=== PATIENT | female | born 1950 | race African-American/Black ===

== ENCOUNTER 2017-10-13 08:17 | Emergency (ER) | payer MEDICAID ==
[~2017-10-13] VITALS: Ht 167.6 cm; Wt 65.0 kg
[2017-10-13 08:18] VITALS: BP 128/72
== END 2017-10-13 12:39 | disposition left against medical advice (07) ==
LOC: ER 08:40
DX: R05 Cough (principal); Z53.21 Procedure and treatment not carried out due to patient leaving prior to being seen by health care provider

== ENCOUNTER 2018-07-05 17:28 | Inpatient (IN) | payer MEDICAID ==
[~2018-07-05] VITALS: Ht 157.5 cm; Wt 54.4 kg
[~2018-07-05 17:28] MED LIST: BENZ100C86 PO; COR6 PO; FERR-71 MT; FURO20TA4 MT; LEVO750T46 MT; METH10TA2 PO
[2018-07-05] MEDS ORDERED: FAMOTIDINE 20MG/2ML VIAL IV ONE (19:15)
[2018-07-05 19:19] LABS: BASOPHILS % 0.9 % (0.0-2.0); HEMATOCRIT. 35.4 % (36.0-48.0); HEMOGLOBIN. 11.7 g/dL (12.0-16.0); LYMPHOCYTES % 7.5 % (20.0-50.0); MEAN CORPUSCULAR HEMOGLOBIN 29.6 pg (28.0-32.0); MEAN CORPUSCULAR VOLUME 89.6 fL (81.0-99.0); MEAN PLATELET VOLUME 8.2 fl (7.4-10.4); MONOCYTES % 9.8 % (2.0-8.0); NEUTROPHILS % 81.8 % (40.0-76.0); PLATELET 638 x1000/uL (130-400); RED BLOOD CELL COUNT 3.96 mill/uL (4.2-5.4); RED CELL DISTRIBUTION WIDTH 16.8 % (11.6-14.6)
[2018-07-05 19:21] LABS: CHLORIDE 100 mEq/L (98-107); PROTHROMBIN TIME 10.2 sec (9.1-11.1)
[2018-07-05 20:01] LABS: CLARITY URINE CLEAR (CLEAR); COLOR URINE DARK YELLOW (YELLOW); KETONES URINE NEGATIVE (NEGATIVE); LEUKOCYTE ESTERASE URINE 1+ (NEGATIVE); NITRITE URINE NEGATIVE (NEGATIVE); OCCULT BLOOD URINE NEGATIVE (NEGATIVE); PH URINE 6.5 (4.5-8.0); PROTEIN URINE NEGATIVE (NEGATIVE)
[2018-07-05] MEDS ORDERED: IOHEXOL-300 100 ML BOTTLE ONE (20:24)
[2018-07-05] MEDS ORDERED: LORAZEPAM 0.5MG TABLET PO PRN (22:15)
[2018-07-05] MEDS ORDERED: IPRATROPIUM/ALBUTEROL 0.5-3(2.5)MG/3ML NEB INH PRN (22:15)
[2018-07-05] MEDS ORDERED: CLONIDINE 0.1MG TABLET PO PRN (22:15)
[2018-07-05] MEDS ORDERED: ACETAMINOPHEN 325MG TABLET PO PRN (22:15)
[2018-07-05] MEDS ORDERED: ONDANSETRON HCL 4MG/2ML INJ IV PRN (22:15)
[2018-07-05] MEDS ORDERED: DOCUSATE SODIUM 100MG CAPSULE PO PRN (22:15)
[2018-07-05 22:58] LABS: CHLORIDE 102 mEq/L (98-107)
[2018-07-06] VITALS (7 sets, daily range): BP systolic 86–98; BP diastolic 38–59
[2018-07-06] MEDS ORDERED: CEFTRIAXONE 1 G PREMIX 50 ML IV SCH
[2018-07-06] MEDS: SODIUM CHLORIDE 0.9% 1,000 ML IV SCH (00:28)
[2018-07-06] MEDS: MAGNESIUM/ALUMINUM HYDROXIDE/SIMETHICONE 30ML UDC PO PRN (05:47)
[2018-07-06] MEDS: GUAIFENESIN 200MG/10ML SUGAR FREE UDC PO PRN (05:47)
[2018-07-06 06:48] LABS: BASOPHILS % 0.8 % (0.0-2.0); HEMATOCRIT. 28.2 % (36.0-48.0); HEMOGLOBIN. 9.3 g/dL (12.0-16.0); LYMPHOCYTES % 8.8 % (20.0-50.0); MEAN CORPUSCULAR HEMOGLOBIN 29.8 pg (28.0-32.0); MEAN CORPUSCULAR VOLUME 90.3 fL (81.0-99.0); MEAN PLATELET VOLUME 8.3 fl (7.4-10.4); MONOCYTES % 13.6 % (2.0-8.0); NEUTROPHILS % 76.8 % (40.0-76.0); PLATELET 525 x1000/uL (130-400); RED BLOOD CELL COUNT 3.12 mill/uL (4.2-5.4); RED CELL DISTRIBUTION WIDTH 17.2 % (11.6-14.6)
[2018-07-06 07:14] LABS: LDL CHOLESTEROL 62 mg/dL (5-100)
[2018-07-06 07:17] LABS: CREATINE KINASE 20 IU/L (26-192)
[2018-07-06 07:18] LABS: HDL CHOLESTEROL 41 mg/dL (40-59)
[2018-07-06 07:21] LABS: CREATINE KINASE MB FRACTION 1.2 ng/mL (0.5-3.6)
[2018-07-06] MEDS: ENOXAPARIN 40MG/0.4ML SYR SUBCUT SCH (08:25)
[2018-07-06] MEDS: HYDROCODONE/ACETAMINOPHEN 5/325MG TABLET PO PRN ×2 (10:14→20:33)
[2018-07-06] MEDS: METHADONE HCL 10MG TABLET PO SCH (11:31)
[2018-07-06] MEDS: FUROSEMIDE 20MG TABLET PO SCH (13:30)
[2018-07-06] MEDS ORDERED: BENZONATATE 100MG CAPSULE PO PRN (13:30)
[2018-07-06] MEDS ORDERED: CEFTRIAXONE 2 G PREMIX 50 ML IV SCH ×2 (15:00)
[2018-07-06 16:31] LABS: CREATINE KINASE 22 IU/L (26-192)
[2018-07-06 16:32] LABS: CREATINE KINASE MB FRACTION 1.2 ng/mL (0.5-3.6)
[2018-07-06] MEDS: CEFTRIAXONE 2 G in DEXTROSE 5% WATER 50 ML IV SCH (18:10)
[2018-07-06] MEDS ORDERED: CARVEDILOL 6.25 MG TABLET PO SCH (21:00)
[2018-07-07] VITALS: BP 96/40
[2018-07-07 04:00] VITALS: BP 101/58
[2018-07-07] MEDS: HYDROCODONE/ACETAMINOPHEN 5/325MG TABLET PO PRN ×3 (05:51→22:20)
[2018-07-07 06:39] LABS: BASOPHILS % 0.6 % (0.0-2.0); HEMATOCRIT. 29.1 % (36.0-48.0); HEMOGLOBIN. 9.8 g/dL (12.0-16.0); MEAN CORPUSCULAR VOLUME 88.7 fL (81.0-99.0); MONOCYTES % 14.8 % (2.0-8.0); NEUTROPHILS % 76.6 % (40.0-76.0); PLATELET 500 x1000/uL (130-400); RED BLOOD CELL COUNT 3.28 mill/uL (4.2-5.4); RED CELL DISTRIBUTION WIDTH 17.2 % (11.6-14.6)
[2018-07-07 06:55] LABS: CHLORIDE 100 mEq/L (98-107)
[2018-07-07] MEDS: SODIUM CHLORIDE 0.9% 1,000 ML IV SCH ×2 (06:56→18:00)
[2018-07-07 07:00] LABS: PHOSPHORUS 3.1 mg/dL (2.5-4.9)
[2018-07-07 08:00] VITALS: BP 92/49
[2018-07-07] MEDS: METHADONE HCL 10MG TABLET PO SCH (09:17)
[2018-07-07] MEDS: MAGNESIUM/ALUMINUM HYDROXIDE/SIMETHICONE 30ML UDC PO PRN (09:17)
[2018-07-07] MEDS: FUROSEMIDE 20MG TABLET PO SCH (09:17)
[2018-07-07] MEDS: ENOXAPARIN 40MG/0.4ML SYR SUBCUT SCH (09:23)
[2018-07-07] MEDS ORDERED: BARIUM SULFATE 176 GM SUSP.RECON ONE (10:50)
[2018-07-07 16:00] VITALS: BP 100/56
[2018-07-07 20:00] VITALS: BP 106/64
[2018-07-07] MEDS: CEFTRIAXONE 2 G in DEXTROSE 5% WATER 50 ML IV SCH (20:00)
[2018-07-08] VITALS (10 sets, daily range): BP systolic 87–110; BP diastolic 54–62
[2018-07-08] MEDS: SODIUM CHLORIDE 0.9% 1,000 ML IV SCH (00:33)
[2018-07-08 04:17] LABS: HIV SCREEN 4G Non Reactive (Non Reactive)
[2018-07-08 06:13] LABS: HEMATOCRIT. 26.9 % (36.0-48.0); HEMOGLOBIN. 9.2 g/dL (12.0-16.0); MEAN CORPUSCULAR HEMOGLOBIN 30.1 pg (28.0-32.0); MEAN CORPUSCULAR VOLUME 88.5 fL (81.0-99.0); MEAN PLATELET VOLUME 8.2 fl (7.4-10.4); PLATELET 503 x1000/uL (130-400); RED BLOOD CELL COUNT 3.04 mill/uL (4.2-5.4); RED CELL DISTRIBUTION WIDTH 16.8 % (11.6-14.6)
[2018-07-08 06:26] LABS: CHLORIDE 102 mEq/L (98-107)
[2018-07-08 06:32] LABS: HEPATITIS B SURFACE ANTIGEN NEGATIVE
[2018-07-08 06:34] LABS: PHOSPHORUS 3.3 mg/dL (2.5-4.9)
[2018-07-08 07:00] LABS: HEPATITIS B CORE AB IGM NEGATIVE
[2018-07-08 07:01] LABS: HEPATITIS A AB IGM NEGATIVE (NEGATIVE)
[2018-07-08] MEDS: ENOXAPARIN 40MG/0.4ML SYR SUBCUT SCH (09:05)
[2018-07-08] MEDS: FUROSEMIDE 20MG TABLET PO SCH (09:05)
[2018-07-08] MEDS: METHADONE HCL 10MG TABLET PO SCH (09:08)
[2018-07-08] MEDS ORDERED: FUROSEMIDE 20MG/2ML VIAL IVP SCH (12:45)
[2018-07-08 13:46] LABS: BG BASE EXCESS 2.2 mmol/L (-2.0-2.0); BG CARBOXYHEMOGLOBIN 0.3 % (0.5-1.5); BG DEOXYHEMOGLOBIN 4.6 % (0.0-5.0); BG FRACTION INSPIRED OXYGEN 21; BG HCO3 ACT 27.1 mmol/L (22.0-26.0); BG METHEMOGLOBIN 0.1 % (0.0-1.5); BG OXYGEN SATURATION 95.4 % (92.0-98.5); BG PCO2 43.6 mmHg (35.0-45.0); BG PH 7.412 (7.350-7.450); BG PO2 81.8 mmHg (75.0-100.0); BG SAMPLE SITE RIGHT BRACHIAL; BG TOTAL HEMOGLOBIN 10.3 g/dL (12.0-18.0); BG VENT MODE ROOM AIR
[2018-07-08] MEDS: HYDROCODONE/ACETAMINOPHEN 5/325MG TABLET PO PRN ×2 (15:40→20:32)
[2018-07-08] MEDS: CEFTRIAXONE 2 G in DEXTROSE 5% WATER 50 ML IV SCH (17:00)
[2018-07-08] MEDS ORDERED: ALBUTEROL (0.083%) 2.5MG/3ML NEB HHN PRN (17:45)
[2018-07-08] MEDS ORDERED: METRONIDAZOLE 500 MG PREMIX 100 ML IV SCH (20:00)
[2018-07-08] MEDS: ALBUTEROL (0.083%) 2.5MG/3ML NEB HHN SCH (20:14)
[2018-07-08] MEDS: GUAIFENESIN 200MG/10ML SUGAR FREE UDC PO PRN (20:27)
[2018-07-09] VITALS (12 sets, daily range): BP systolic 86–111; BP diastolic 52–70
[2018-07-09] MEDS: ACETYLCYSTEINE 100MG/ML 10% VIAL 4ML INH SCH ×4 (00:17→08:29)
[2018-07-09] MEDS: ALBUTEROL (0.083%) 2.5MG/3ML NEB HHN SCH ×5 (00:17→20:37)
[2018-07-09 00:26] LABS: PLATELET ESTIMATE INCREASED
[2018-07-09] MEDS: IPRATROPIUM/ALBUTEROL 0.5-3(2.5)MG/3ML NEB INH SCH ×7 (04:05→17:49)
[2018-07-09] MEDS: HYDROCODONE/ACETAMINOPHEN 5/325MG TABLET PO PRN ×2 (04:34→18:52)
[2018-07-09] MEDS: METRONIDAZOLE 500 MG PREMIX 100 ML IV SCH ×3 (04:39→17:18)
[2018-07-09 05:27] LABS: INR 1.1; PARTIAL THROMBOPLASTIN TIME 33.1 sec (23.4-31.0); PROTHROMBIN TIME 11.1 sec (9.1-11.1)
[2018-07-09 06:31] LABS: CHLORIDE 101 mEq/L (98-107)
[2018-07-09 06:37] LABS: PHOSPHORUS 3.6 mg/dL (2.5-4.9)
[2018-07-09] MEDS: FUROSEMIDE 20MG TABLET PO SCH (09:09)
[2018-07-09] MEDS: ENOXAPARIN 40MG/0.4ML SYR SUBCUT SCH (09:09)
[2018-07-09] MEDS: METHADONE HCL 10MG TABLET PO SCH (09:12)
[2018-07-09 11:42] LABS: HEMATOCRIT. 27.7 % (36.0-48.0); MEAN CORPUSCULAR HEMOGLOBIN 29.4 pg (28.0-32.0); MEAN CORPUSCULAR VOLUME 90.1 fL (81.0-99.0); MEAN PLATELET VOLUME 8.5 fl (7.4-10.4); PLATELET 464 x1000/uL (130-400); RED BLOOD CELL COUNT 3.08 mill/uL (4.2-5.4); RED CELL DISTRIBUTION WIDTH 17.2 % (11.6-14.6)
[2018-07-09 12:46] LABS: PLATELET ESTIMATE INCREASED
[2018-07-09] MEDS ORDERED: BISACODYL 10MG SUPP PR NR (13:15)
[2018-07-09] MEDS ORDERED: FUROSEMIDE 40MG/4ML VIAL IVP NR (14:00)
[2018-07-09] MEDS: DIPHENHYDRAMINE 50MG CAPSULE PO PRN (15:01)
[2018-07-09] MEDS: CEFTRIAXONE 2 G in DEXTROSE 5% WATER 50 ML IV SCH (16:36)
[2018-07-10] VITALS (11 sets, daily range): BP systolic 91–123; BP diastolic 55–66
[2018-07-10] MEDS: IPRATROPIUM/ALBUTEROL 0.5-3(2.5)MG/3ML NEB INH SCH ×2 (00:45→16:00)
[2018-07-10] MEDS: METRONIDAZOLE 500 MG PREMIX 100 ML IV SCH ×3 (01:56→18:00)
[2018-07-10] MEDS: HYDROCODONE/ACETAMINOPHEN 5/325MG TABLET PO PRN ×2 (03:02→20:02)
[2018-07-10] MEDS: GUAIFENESIN 200MG/10ML SUGAR FREE UDC PO PRN (03:02)
[2018-07-10] MEDS: ALBUTEROL (0.083%) 2.5MG/3ML NEB HHN SCH ×2 (04:05→21:30)
[2018-07-10 06:30] LABS: HEMOGLOBIN. 8.8 g/dL (12.0-16.0); MEAN CORPUSCULAR HEMOGLOBIN 29.9 pg (28.0-32.0); MEAN CORPUSCULAR VOLUME 88.3 fL (81.0-99.0); MEAN PLATELET VOLUME 8.4 fl (7.4-10.4); PLATELET 481 x1000/uL (130-400); RED BLOOD CELL COUNT 2.95 mill/uL (4.2-5.4); RED CELL DISTRIBUTION WIDTH 17.1 % (11.6-14.6)
[2018-07-10 06:46] LABS: CHLORIDE 100 mEq/L (98-107)
[2018-07-10 06:53] LABS: PHOSPHORUS 3.7 mg/dL (2.5-4.9)
[2018-07-10 07:00] LABS: TOTAL IRON BINDING CAPACITY 206 ug/dL (250-450)
[2018-07-10 07:04] LABS: FOLIC ACID (FOLATE) SERUM 16.5 ng/mL (>5.38)
[2018-07-10 07:08] LABS: INR 1.1; PARTIAL THROMBOPLASTIN TIME 32.3 sec (23.4-31.0); PROTHROMBIN TIME 11.4 sec (9.1-11.1)
[2018-07-10 10:07] LABS: PLATELET ESTIMATE INCREASED
[2018-07-10] MEDS: FUROSEMIDE 20MG TABLET PO SCH (11:50)
[2018-07-10] MEDS: ENOXAPARIN 40MG/0.4ML SYR SUBCUT SCH (11:51)
[2018-07-10] MEDS: METHADONE HCL 10MG TABLET PO SCH (11:51)
[2018-07-10] MEDS: CEFTRIAXONE 2 G in DEXTROSE 5% WATER 50 ML IV SCH (16:31)
[2018-07-10] MEDS: DIPHENHYDRAMINE 50MG CAPSULE PO PRN (16:31)
[2018-07-10] MEDS: PREDNISONE 20MG TABLET PO SCH (16:33)
[2018-07-10] MEDS: BUDESONIDE 0.5MG/2ML NEB HHN SCH (21:29)
[2018-07-11] VITALS (11 sets, daily range): BP systolic 92–136; BP diastolic 37–81
[2018-07-11] MEDS: ACETYLCYSTEINE 100MG/ML 10% VIAL 4ML INH SCH (01:07)
[2018-07-11] MEDS: ALBUTEROL (0.083%) 2.5MG/3ML NEB HHN SCH ×3 (01:08→11:49)
[2018-07-11] MEDS: METRONIDAZOLE 500 MG PREMIX 100 ML IV SCH ×3 (01:22→17:56)
[2018-07-11] MEDS: DIPHENHYDRAMINE 50MG CAPSULE PO PRN ×2 (01:22→23:41)
[2018-07-11] MEDS: PREDNISONE 20MG TABLET PO SCH (08:55)
[2018-07-11] MEDS: FUROSEMIDE 20MG TABLET PO SCH (08:55)
[2018-07-11] MEDS: METHADONE HCL 10MG TABLET PO SCH (08:56)
[2018-07-11] MEDS: ENOXAPARIN 40MG/0.4ML SYR SUBCUT SCH (08:56)
[2018-07-11] MEDS: CEFTRIAXONE 2 G in DEXTROSE 5% WATER 50 ML IV SCH (16:27)
[2018-07-11] MEDS: BUDESONIDE 0.5MG/2ML NEB HHN SCH (19:55)
[2018-07-11] MEDS: IPRATROPIUM/ALBUTEROL 0.5-3(2.5)MG/3ML NEB INH SCH (19:55)
[2018-07-12] VITALS (9 sets, daily range): BP systolic 101–138; BP diastolic 58–72
[2018-07-12] MEDS: ALBUTEROL (0.083%) 2.5MG/3ML NEB HHN SCH ×2 (00:04→04:18)
[2018-07-12] MEDS: ACETYLCYSTEINE 100MG/ML 10% VIAL 4ML INH SCH ×2 (00:05→08:20)
[2018-07-12] MEDS: METRONIDAZOLE 500 MG PREMIX 100 ML IV SCH ×2 (02:12→09:10)
[2018-07-12] MEDS: IPRATROPIUM/ALBUTEROL 0.5-3(2.5)MG/3ML NEB INH SCH (07:48)
[2018-07-12] MEDS: BUDESONIDE 0.5MG/2ML NEB HHN SCH (07:49)
[2018-07-12] MEDS: FUROSEMIDE 20MG TABLET PO SCH (08:08)
[2018-07-12] MEDS: ENOXAPARIN 40MG/0.4ML SYR SUBCUT SCH (08:08)
[2018-07-12] MEDS: PREDNISONE 20MG TABLET PO SCH (08:08)
[2018-07-12] MEDS ORDERED: METHADONE HCL 10MG TABLET PO SCH (09:00)
== END 2018-07-12 16:27 | disposition home health service (06) | DRG 720 ==
LOC: ER 21:03 → 7WST 21:27 → EDBEDREQTM 21:31 → EDBEDREQ 21:31 → ENRESERV 22:05 → 5EST 07-08 14:21
PROVIDERS: ADMIT Internal Medicine; ATTEND Internal Medicine
DX: A40.3 Sepsis due to Streptococcus pneumoniae (principal); J96.00 Acute respiratory failure, unspecified whether with hypoxia or hypercapnia; I50.43 Acute on chronic combined systolic (congestive) and diastolic (congestive) heart failure; E46 Unspecified protein-calorie malnutrition; J13 Pneumonia due to Streptococcus pneumoniae; I27.20 Pulmonary hypertension, unspecified; I11.0 Hypertensive heart disease with heart failure; I07.1 Rheumatic tricuspid insufficiency; K56.7 Ileus, unspecified; J44.0 Chronic obstructive pulmonary disease with (acute) lower respiratory infection; F14.90 Cocaine use, unspecified, uncomplicated; D64.9 Anemia, unspecified; K83.8 Other specified diseases of biliary tract; C95.91 Leukemia, unspecified, in remission; B19.20 Unspecified viral hepatitis C without hepatic coma; F17.200 Nicotine dependence, unspecified, uncomplicated; J44.1 Chronic obstructive pulmonary disease with (acute) exacerbation; Z87.11 Personal history of peptic ulcer disease; Z90.3 Acquired absence of stomach [part of]; Z91.19 Patient's noncompliance with other medical treatment and regimen; Z88.9 Allergy status to unspecified drugs, medicaments and biological substances; Z68.21 Body mass index [BMI] 21.0-21.9, adult; R07.89 Other chest pain; T40.5X1A Poisoning by cocaine, accidental (unintentional), initial encounter; J68.0 Bronchitis and pneumonitis due to chemicals, gases, fumes and vapors
CPT/HCPCS: 36415; 36600; 71045; 71250; 74177; 74181; 74250; 80048; 80053; 80061; 80076; 81003; 82375; 82550; 82553; 82607; 82728; 82746; 82805; 83540; 83550; 83605; 83690; 83735; 83880; 84100; 84145; 84443; 84484; 85025; 85610; 85730; 86301; 86705; 86709; 86803; 87040; 87340; 87389; 93005; 93970; 94640; 96374; 99285; J0696; J1650; J1940; J3490; J7030; J7050; J7060; J7512; J7608; J7611; J7620; J7626; Q0163; Q9967

== ENCOUNTER 2018-07-12 22:37 | Inpatient (IN) | payer MEDICAID ==
[~2018-07-12] VITALS: Ht 157.5 cm; Wt 46.9 kg
[2018-07-12] MEDS ORDERED: SODIUM CHLORIDE 0.9% 1,000 ML IV ONE (23:03)
[2018-07-12] MEDS ORDERED: KETOROLAC 30MG/ML VIAL IV STA (23:03)
[2018-07-12 23:47] LABS: CHLORIDE 97 mEq/L (98-107)
[2018-07-12 23:49] LABS: HEMOGLOBIN. 10.8 g/dL (12.0-16.0); MEAN CORPUSCULAR HEMOGLOBIN 29.1 pg (28.0-32.0); MEAN PLATELET VOLUME 8.3 fl (7.4-10.4); PLATELET 804 x1000/uL (130-400); RED BLOOD CELL COUNT 3.71 mill/uL (4.2-5.4); RED CELL DISTRIBUTION WIDTH 17.4 % (11.6-14.6)
[2018-07-12 23:51] LABS: ETHANOL BLOOD < 10 mg/dL; INR 1.2; PARTIAL THROMBOPLASTIN TIME 28.2 sec (23.4-31.0); PROTHROMBIN TIME 11.9 sec (9.1-11.1)
[2018-07-13 00:03] LABS: CLARITY URINE CLEAR (CLEAR); COLOR URINE YELLOW (YELLOW); KETONES URINE NEGATIVE (NEGATIVE); LEUKOCYTE ESTERASE URINE NEGATIVE (NEGATIVE); NITRITE URINE NEGATIVE (NEGATIVE); OCCULT BLOOD URINE NEGATIVE (NEGATIVE); PH URINE 8.5 (4.5-8.0); PROTEIN URINE 1+ (NEGATIVE); SPECIFIC GRAVITY URINE 1.022 (1.005-1.030)
[2018-07-13] MEDS ORDERED: CLINDAMYCIN 600 MG in SODIUM CHLORIDE 0.9% 50 ML IV NR (00:15)
[2018-07-13] MEDS ORDERED: VANCOMYCIN 1 G PREMIX 200 ML IV SCH (00:15)
[2018-07-13] MEDS ORDERED: ASPIRIN 325MG TABLET PO NR (00:15)
[2018-07-13] MEDS ORDERED: CEFEPIME HCL 2000MG/VIAL INJ IV ONE (00:15)
[2018-07-13] MEDS ORDERED: SODIUM CHLORIDE 0.9% 1,000 ML IV ONE (00:30)
[2018-07-13] MEDS ORDERED: CEFEPIME 2GM PREMIX 100 ML IV NR (00:30)
[2018-07-13] MEDS ORDERED: CEFEPIME 2,000 MG in DEXT 5% WATER 100 ML IV NR (00:30)
[2018-07-13 00:31] LABS: *AMPHETAMINES SCREEN URINE NEGATIVE (NEGATIVE); *BARBITURATES SCREEN URINE NEGATIVE (NEGATIVE); *BENZODIAZEPINES SCREEN URINE NEGATIVE (NEGATIVE); *COCAINE SCREEN URINE PRESUMTIVE POSITIVE (NEGATIVE); CANNABINOID URINE SCREEN NEGATIVE (NEGATIVE); PHENCYCLIDINE URINE SCREEN NEGATIVE (NEGATIVE)
[2018-07-13 00:32] LABS: OPIATES URINE SCREEN PRESUMTIVE POSITIVE (NEGATIVE)
[2018-07-13 00:36] LABS: METHADONE URINE SCREEN PRESUMTIVE POSITIVE (NEGATIVE)
[2018-07-13 02:49] LABS: PLATELET ESTIMATE INCREASED
[2018-07-13] MEDS ORDERED: KETOROLAC 15MG/ML VIAL IV ONE (03:15)
[2018-07-13 06:00] VITALS: BP 107/72
[2018-07-13 08:00] VITALS: BP 104/68
[2018-07-13] MEDS ORDERED: IPRATROPIUM/ALBUTEROL 0.5-3(2.5)MG/3ML NEB HHN PRN (08:15)
[2018-07-13] MEDS ORDERED: BUDESONIDE 0.5MG/2ML NEB HHN SCH (09:00)
[2018-07-13 09:45] VITALS: BP 104/68
[2018-07-13] MEDS ORDERED: BENZONATATE 100MG CAPSULE PO PRN (09:45)
[2018-07-13] MEDS: METHADONE HCL 10MG TABLET PO SCH ×2 (10:00→12:40)
[2018-07-13] MEDS: LEVOFLOXACIN 750MG PREMIX 150 ML IV SCH (11:02)
[2018-07-13 11:41] VITALS: BP 96/66
[2018-07-13] MEDS: IPRATROPIUM/ALBUTEROL 0.5-3(2.5)MG/3ML NEB HHN SCH ×3 (12:27→20:12)
[2018-07-13] MEDS ORDERED: LACTULOSE 20G/30ML UDC PO PRN (13:45)
[2018-07-13] MEDS: MORPHINE SULFATE 4 MG/ML CPJ (NOT FOR IM USE) IV PRN ×3 (13:55→21:30)
[2018-07-13] MEDS: METRONIDAZOLE 500 MG PREMIX 100 ML IV SCH ×2 (15:00→20:45)
[2018-07-13 16:00] VITALS: BP 95/63
[2018-07-13] MEDS: DOCUSATE SODIUM 250MG CAPSULE PO SCH (17:30)
[2018-07-13 20:00] VITALS: BP 105/71
[2018-07-13] MEDS: BUDESONIDE 0.5MG/2ML NEB HHN SCH (20:11)
[2018-07-13] MEDS: PANTOPRAZOLE SODIUM 40 MG/VIAL IV SCH (20:45)
[2018-07-14] VITALS (11 sets, daily range): BP systolic 90–111; BP diastolic 56–74
[2018-07-14] MEDS: MORPHINE SULFATE 4 MG/ML CPJ (NOT FOR IM USE) IV PRN ×2 (01:31→05:54)
[2018-07-14] MEDS: IPRATROPIUM/ALBUTEROL 0.5-3(2.5)MG/3ML NEB HHN SCH ×5 (01:35→20:12)
[2018-07-14 05:43] LABS: CHLORIDE 102 mEq/L (98-107); INR 1.2; PARTIAL THROMBOPLASTIN TIME 30.6 sec (23.4-31.0); PROTHROMBIN TIME 11.8 sec (9.1-11.1)
[2018-07-14 05:45] LABS: BASOPHILS % 0.8 % (0.0-2.0); HEMATOCRIT. 27.3 % (36.0-48.0); HEMOGLOBIN. 9.1 g/dL (12.0-16.0); LYMPHOCYTES % 11.2 % (20.0-50.0); MEAN CORPUSCULAR VOLUME 87.3 fL (81.0-99.0); MEAN PLATELET VOLUME 7.8 fl (7.4-10.4); PLATELET 506 x1000/uL (130-400); RED BLOOD CELL COUNT 3.12 mill/uL (4.2-5.4); RED CELL DISTRIBUTION WIDTH 16.9 % (11.6-14.6)
[2018-07-14] MEDS: METRONIDAZOLE 500 MG PREMIX 100 ML IV SCH ×3 (05:53→21:04)
[2018-07-14] MEDS: BUDESONIDE 0.5MG/2ML NEB HHN SCH ×2 (08:09→20:12)
[2018-07-14] MEDS: LEVOFLOXACIN 750MG PREMIX 150 ML IV SCH (08:41)
[2018-07-14] MEDS: PANTOPRAZOLE SODIUM 40 MG/VIAL IV SCH ×2 (08:41→21:03)
[2018-07-14] MEDS: DOCUSATE SODIUM 250MG CAPSULE PO SCH ×2 (09:00→17:34)
[2018-07-14] MEDS ORDERED: VECURONIUM BROMIDE 10 MG/VIAL IV ONE (11:25)
[2018-07-14] MEDS ORDERED: SUCCINYLCHOLINE CHLORIDE 200MG/10ML IV ONE (11:25)
[2018-07-14] MEDS ORDERED: FENTANYL CITRATE/PF 50MCG/ML 2ML VIAL ONE (11:25)
[2018-07-14] MEDS ORDERED: ETOMIDATE 2MG/ML 10ML VIAL IV ONE (11:25)
[2018-07-14] MEDS ORDERED: PROPOFOL 200MG/20ML VIAL IV ONE (11:25)
[2018-07-14] MEDS ORDERED: IOHEXOL-300 100 ML BOTTLE ONE (12:04)
[2018-07-14] MEDS ORDERED: SIMETHICONE 40 MG/0.6 ML 30ML ONE (12:05)
[2018-07-14] MEDS ORDERED: NIFEDIPINE 10MG CAPSULE ONE (13:03)
[2018-07-14] MEDS ORDERED: GLYCOPYRROLATE 0.2 MG/ML 2ML VIAL ONE (13:03)
[2018-07-14] MEDS ORDERED: NEOSTIGMINE METHYLSULFATE 1MG/ML 10 ML VIAL ONE (13:04)
[2018-07-14] MEDS ORDERED: HYDROMORPHONE HCL/PF 2MG/ML CPJ ONE (13:26)
[2018-07-14] MEDS ORDERED: ONDANSETRON HCL 4MG/2ML INJ IV PRN ×2 (13:30)
[2018-07-14] MEDS ORDERED: HYDROMORPHONE HCL/PF 2MG/ML CPJ IV PRN (13:30)
[2018-07-14] MEDS ORDERED: MEPERIDINE HCL/PF 25MG/ML CPJ IV PRN ×2 (13:30)
[2018-07-14] MEDS ORDERED: LABETALOL 5MG/ML SYR 20 MG/4 ML SYRINGE IV PRN ×2 (13:30)
[2018-07-14] MEDS: HYDROMORPHONE HCL/PF 2MG/ML CPJ IV PRN ×2 (13:52→14:15)
[2018-07-14] MEDS ORDERED: NA PHOS,M-B/NA PHOS,DI-BA ENEMA 118ML PR NR (14:00)
[2018-07-14] MEDS: METHADONE HCL 10MG TABLET PO SCH (15:02)
[2018-07-14 18:03] LABS: CLARITY URINE CLEAR (CLEAR); COLOR URINE YELLOW (YELLOW); KETONES URINE NEGATIVE (NEGATIVE); LEUKOCYTE ESTERASE URINE NEGATIVE (NEGATIVE); NITRITE URINE NEGATIVE (NEGATIVE); OCCULT BLOOD URINE NEGATIVE (NEGATIVE); PH URINE 7.5 (4.5-8.0); PROTEIN URINE NEGATIVE (NEGATIVE); SPECIFIC GRAVITY URINE 1.012 (1.005-1.030); UROBILINOGEN URINE 0.2 E.U./dL (0.2-1.0)
[2018-07-15] VITALS (8 sets, daily range): BP systolic 83–140; BP diastolic 50–88
[2018-07-15] MEDS: IPRATROPIUM/ALBUTEROL 0.5-3(2.5)MG/3ML NEB HHN SCH ×6 (00:52→20:00)
[2018-07-15] MEDS: MORPHINE SULFATE 4 MG/ML CPJ (NOT FOR IM USE) IV PRN ×5 (02:42→22:41)
[2018-07-15] MEDS: METRONIDAZOLE 500 MG PREMIX 100 ML IV SCH ×3 (06:21→22:41)
[2018-07-15] MEDS: METHADONE HCL 10MG TABLET PO SCH (07:32)
[2018-07-15] MEDS: BUDESONIDE 0.5MG/2ML NEB HHN SCH ×2 (07:54→20:00)
[2018-07-15] MEDS: DOCUSATE SODIUM 250MG CAPSULE PO SCH ×2 (09:00→17:00)
[2018-07-15] MEDS ORDERED: KETOROLAC 30MG/ML VIAL IV NR (15:15)
[2018-07-15 15:46] LABS: HEMATOCRIT. 29.2 % (36.0-48.0); HEMOGLOBIN. 9.8 g/dL (12.0-16.0); MEAN CORPUSCULAR HEMOGLOBIN 29.2 pg (28.0-32.0); MEAN CORPUSCULAR VOLUME 87.3 fL (81.0-99.0); MEAN PLATELET VOLUME 7.9 fl (7.4-10.4); PLATELET 597 x1000/uL (130-400); RED BLOOD CELL COUNT 3.35 mill/uL (4.2-5.4); RED CELL DISTRIBUTION WIDTH 17.1 % (11.6-14.6)
[2018-07-15 15:51] LABS: CHLORIDE 101 mEq/L (98-107)
[2018-07-15 21:04] LABS: ATYPICAL LYMPHOCYTES 1; PLATELET ESTIMATE INCREASED
[2018-07-16] VITALS: BP 100/58
[2018-07-16] MEDS: IPRATROPIUM/ALBUTEROL 0.5-3(2.5)MG/3ML NEB HHN SCH ×5 (00:30→20:23)
[2018-07-16] MEDS: METRONIDAZOLE 500 MG PREMIX 100 ML IV SCH ×3 (05:53→22:01)
[2018-07-16] MEDS: MORPHINE SULFATE 4 MG/ML CPJ (NOT FOR IM USE) IV PRN ×3 (05:53→17:22)
[2018-07-16] MEDS: METHADONE HCL 10MG TABLET PO SCH (07:54)
[2018-07-16] MEDS: DOCUSATE SODIUM 250MG CAPSULE PO SCH ×2 (07:54→17:17)
[2018-07-16 08:00] VITALS: BP 118/73
[2018-07-16] MEDS: LEVOFLOXACIN 750MG PREMIX 150 ML IV SCH (10:21)
[2018-07-16 12:00] VITALS: BP 108/70
[2018-07-16 16:00] VITALS: BP 116/71
[2018-07-16] MEDS: BUDESONIDE 0.5MG/2ML NEB HHN SCH ×2 (17:19→20:23)
[2018-07-16 17:27] LABS: BG BASE EXCESS 2.7 mmol/L (-2.0-2.0); BG CARBOXYHEMOGLOBIN 0.5 % (0.5-1.5); BG DEOXYHEMOGLOBIN 5.5 % (0.0-5.0); BG FRACTION INSPIRED OXYGEN 21; BG METHEMOGLOBIN 0.5 % (0.0-1.5); BG OXYGEN SATURATION 94.4 % (92.0-98.5); BG OXYHEMOGLOBIN 93.5 % (94.0-97.0); BG PCO2 35.7 mmHg (35.0-45.0); BG PH 7.481 (7.350-7.450); BG PO2 70.6 mmHg (75.0-100.0); BG SAMPLE SITE RIGHT BRACHIAL; BG TOTAL HEMOGLOBIN 11.3 g/dL (12.0-18.0); BG VENT MODE ROOM AIR
[2018-07-16 17:59] LABS: BASOPHILS % 0.2 % (0.0-2.0); HEMATOCRIT. 27.9 % (36.0-48.0); HEMOGLOBIN. 9.4 g/dL (12.0-16.0); LYMPHOCYTES % 4.1 % (20.0-50.0); MEAN CORPUSCULAR HEMOGLOBIN 29.1 pg (28.0-32.0); MEAN CORPUSCULAR VOLUME 86.5 fL (81.0-99.0); MEAN PLATELET VOLUME 7.9 fl (7.4-10.4); MONOCYTES % 9.9 % (2.0-8.0); NEUTROPHILS % 85.8 % (40.0-76.0); PLATELET 526 x1000/uL (130-400); RED BLOOD CELL COUNT 3.23 mill/uL (4.2-5.4); RED CELL DISTRIBUTION WIDTH 17.2 % (11.6-14.6)
[2018-07-16 18:07] LABS: CHLORIDE 100 mEq/L (98-107)
[2018-07-16 20:00] VITALS: BP 100/60
[2018-07-17] VITALS: BP 100/62
[2018-07-17 04:00] VITALS: BP 91/65
[2018-07-17] MEDS: METRONIDAZOLE 500 MG PREMIX 100 ML IV SCH ×3 (05:38→21:13)
[2018-07-17 08:00] VITALS: BP 109/59
[2018-07-17] MEDS: IPRATROPIUM/ALBUTEROL 0.5-3(2.5)MG/3ML NEB HHN SCH ×4 (08:00→20:00)
[2018-07-17] MEDS: METHADONE HCL 10MG TABLET PO SCH (08:09)
[2018-07-17] MEDS: LACTULOSE 20G/30ML UDC PO SCH (08:10)
[2018-07-17] MEDS: DOCUSATE SODIUM 250MG CAPSULE PO SCH ×2 (08:10→17:08)
[2018-07-17 12:00] VITALS: BP 113/45
[2018-07-17 16:00] VITALS: BP 106/55
[2018-07-17] MEDS: BUDESONIDE 0.5MG/2ML NEB HHN SCH (16:00)
[2018-07-17 20:00] VITALS: BP 99/69
[2018-07-17] MEDS: GUAIFENESIN 600MG ER TABLET PO SCH (21:12)
[2018-07-18] VITALS (7 sets, daily range): BP systolic 95–137; BP diastolic 48–73
[2018-07-18] MEDS: METRONIDAZOLE 500 MG PREMIX 100 ML IV SCH ×3 (05:49→21:18)
[2018-07-18 07:21] LABS: HEMATOCRIT. 25.2 % (36.0-48.0); HEMOGLOBIN. 8.7 g/dL (12.0-16.0); MEAN CORPUSCULAR HEMOGLOBIN 29.9 pg (28.0-32.0); MEAN CORPUSCULAR VOLUME 87.1 fL (81.0-99.0); MEAN PLATELET VOLUME 8.2 fl (7.4-10.4); PLATELET 431 x1000/uL (130-400); RED CELL DISTRIBUTION WIDTH 17.3 % (11.6-14.6)
[2018-07-18 07:50] LABS: CHLORIDE 104 mEq/L (98-107)
[2018-07-18] MEDS: IPRATROPIUM/ALBUTEROL 0.5-3(2.5)MG/3ML NEB HHN SCH ×3 (08:22→15:34)
[2018-07-18] MEDS: LACTULOSE 20G/30ML UDC PO SCH ×2 (09:00→09:04)
[2018-07-18] MEDS: METHADONE HCL 10MG TABLET PO SCH (09:05)
[2018-07-18] MEDS: DOCUSATE SODIUM 250MG CAPSULE PO SCH ×2 (09:06→17:00)
[2018-07-18] MEDS: GUAIFENESIN 600MG ER TABLET PO SCH ×2 (09:06→21:18)
[2018-07-18] MEDS: LEVOFLOXACIN 750MG PREMIX 150 ML IV SCH (09:07)
[2018-07-18] MEDS: ACETYLCYSTEINE 100MG/ML 10% VIAL 4ML INH SCH ×2 (09:50→14:00)
[2018-07-18] MEDS ORDERED: BISACODYL 10MG SUPP PR PRN (12:00)
[2018-07-18] MEDS ORDERED: NA PHOS,M-B/NA PHOS,DI-BA ENEMA 118ML PR PRN (12:00)
[2018-07-18 13:52] LABS: PLATELET ESTIMATE SLIGHTLY INCREASED
[2018-07-18] MEDS: BUDESONIDE 0.5MG/2ML NEB HHN SCH (15:33)
[2018-07-19] VITALS (7 sets, daily range): BP systolic 90–95; BP diastolic 42–54
[2018-07-19] MEDS: IPRATROPIUM/ALBUTEROL 0.5-3(2.5)MG/3ML NEB HHN SCH ×3 (01:15→08:55)
[2018-07-19] MEDS: BUDESONIDE 0.5MG/2ML NEB HHN SCH (01:16)
[2018-07-19] MEDS: METRONIDAZOLE 500 MG PREMIX 100 ML IV SCH ×2 (05:35→13:38)
[2018-07-19 06:13] LABS: BASOPHILS % 0.7 % (0.0-2.0); HEMATOCRIT. 25.3 % (36.0-48.0); HEMOGLOBIN. 8.6 g/dL (12.0-16.0); LYMPHOCYTES % 11.4 % (20.0-50.0); MEAN CORPUSCULAR HEMOGLOBIN 29.6 pg (28.0-32.0); MONOCYTES % 12.8 % (2.0-8.0); NEUTROPHILS % 75.1 % (40.0-76.0); PLATELET 392 x1000/uL (130-400); RED BLOOD CELL COUNT 2.91 mill/uL (4.2-5.4); RED CELL DISTRIBUTION WIDTH 17.5 % (11.6-14.6)
[2018-07-19 06:34] LABS: CHLORIDE 103 mEq/L (98-107)
[2018-07-19] MEDS: GUAIFENESIN 600MG ER TABLET PO SCH ×3 (08:43→20:57)
[2018-07-19] MEDS: LACTULOSE 20G/30ML UDC PO SCH ×2 (08:43→08:46)
[2018-07-19] MEDS: DOCUSATE SODIUM 250MG CAPSULE PO SCH ×3 (08:43→17:00)
[2018-07-19] MEDS: METHADONE HCL 10MG TABLET PO SCH (10:48)
[2018-07-20 00:05] VITALS: BP 101/63
[2018-07-20] MEDS: IPRATROPIUM/ALBUTEROL 0.5-3(2.5)MG/3ML NEB HHN SCH ×4 (00:17→14:17)
[2018-07-20] MEDS: ACETYLCYSTEINE 100MG/ML 10% VIAL 4ML INH SCH (00:18)
[2018-07-20 04:00] VITALS: BP 95/47
[2018-07-20 08:00] VITALS: BP 93/52
[2018-07-20] MEDS: GUAIFENESIN 600MG ER TABLET PO SCH (08:21)
[2018-07-20] MEDS: METHADONE HCL 10MG TABLET PO SCH (08:25)
[2018-07-20] MEDS: LEVOFLOXACIN 750MG PREMIX 150 ML IV SCH (08:26)
[2018-07-20] MEDS: LACTULOSE 20G/30ML UDC PO SCH (09:00)
[2018-07-20] MEDS: DOCUSATE SODIUM 250MG CAPSULE PO SCH ×2 (09:00→17:00)
[2018-07-20] MEDS: BUDESONIDE 0.5MG/2ML NEB HHN SCH (10:01)
[2018-07-20 12:00] VITALS: BP 88/44
[2018-07-20 14:01] VITALS: BP 90/53
[2018-07-20 16:00] VITALS: BP 90/41
== END 2018-07-20 18:18 | disposition home health service (06) | DRG 140 ==
LOC: ER 22:41 → 5EST 07-13 00:29 → EDBEDREQDT 07-13 00:34 → EDBEDREQTM 07-13 00:34 → EDBEDREQ 07-13 00:34 → EDBEDREQSVC 07-13 00:34 → ENRESERV 07-13 04:27 → 7WST 07-18 17:00
PROVIDERS: ADMIT Internal Medicine; ATTEND Internal Medicine
PROC: 5A09357 Assistance with Respiratory Ventilation, Less than 24 Consecutive Hours, Continuous Positive Airway Pressure (ICD-10-PCS; 2018-07-13)
PROC: 0FBC8ZX Excision of Ampulla of Vater, Via Natural or Artificial Opening Endoscopic, Diagnostic (ICD-10-PCS; 2018-07-14)
PROC: 0DJ08ZZ Inspection of Upper Intestinal Tract, Via Natural or Artificial Opening Endoscopic (ICD-10-PCS; principal; 2018-07-14 11:00)
DX: J44.0 Chronic obstructive pulmonary disease with (acute) lower respiratory infection (principal); J96.01 Acute respiratory failure with hypoxia; I50.43 Acute on chronic combined systolic (congestive) and diastolic (congestive) heart failure; J18.9 Pneumonia, unspecified organism; E87.2 Acidosis; E87.8 Other disorders of electrolyte and fluid balance, not elsewhere classified; I27.21 Secondary pulmonary arterial hypertension; E44.1 Mild protein-calorie malnutrition; I07.1 Rheumatic tricuspid insufficiency; I11.0 Hypertensive heart disease with heart failure; Z68.1 Body mass index [BMI] 19.9 or less, adult; B18.2 Chronic viral hepatitis C; D63.8 Anemia in other chronic diseases classified elsewhere; F17.210 Nicotine dependence, cigarettes, uncomplicated; K29.70 Gastritis, unspecified, without bleeding; C95.91 Leukemia, unspecified, in remission; J44.1 Chronic obstructive pulmonary disease with (acute) exacerbation; K44.9 Diaphragmatic hernia without obstruction or gangrene; K59.00 Constipation, unspecified; K83.8 Other specified diseases of biliary tract; F11.10 Opioid abuse, uncomplicated; F14.10 Cocaine abuse, uncomplicated; R16.2 Hepatomegaly with splenomegaly, not elsewhere classified; Z53.29 Procedure and treatment not carried out because of patient's decision for other reasons; Z87.11 Personal history of peptic ulcer disease; Z71.51 Drug abuse counseling and surveillance of drug abuser; Z90.3 Acquired absence of stomach [part of]; Z91.19 Patient's noncompliance with other medical treatment and regimen; Z88.8 Allergy status to other drugs, medicaments and biological substances; Z79.899 Other long term (current) drug therapy
CPT/HCPCS: 36415; 36600; 71045; 71250; 74018; 74176; 74330; 80048; 80053; 80305; 81003; 82375; 82805; 82962; 83036; 83605; 83690; 83880; 84484; 85025; 85610; 85730; 87040; 88305; 93005; 94640; 94660; 96361; 96374; 97162; 99291; C1726; C1769; C9113; G0482; J0330; J0692; J1170; J1885; J1956; J2270; J2704; J2710; J3010; J3370; J3490; J7030; J7050; J7060; J7608; J7620; J7626; Q9967

== ENCOUNTER 2018-10-24 17:03 | Inpatient (IN) | payer MEDICAID ==
[~2018-10-24] VITALS: Ht 157.5 cm; Wt 54.7 kg
[2018-10-24] MEDS ORDERED: SODIUM CHLORIDE 0.9% 1000ML BAG (SEPSIS BOLUS) IV ONE (19:00)
[2018-10-24 19:46] LABS: HEMATOCRIT. 37.4 % (36.0-48.0); HEMOGLOBIN. 12.2 g/dL (12.0-16.0); MEAN CORPUSCULAR HEMOGLOBIN 31.1 pg (28.0-32.0); MEAN CORPUSCULAR VOLUME 95.5 fL (81.0-99.0); MEAN PLATELET VOLUME 9.3 fl (7.4-10.4); PLATELET 350 x1000/uL (130-400); RED BLOOD CELL COUNT 3.92 mill/uL (4.2-5.4); RED CELL DISTRIBUTION WIDTH 20.7 % (11.6-14.6)
[2018-10-24 19:54] LABS: PROTHROMBIN TIME 10.4 sec (9.1-11.1)
[2018-10-24 20:00] LABS: CHLORIDE 108 mEq/L (98-107)
[2018-10-24 20:07] LABS: NUCLEATED RED BLOOD CELLS 1 /100 WBC; PLATELET ESTIMATE NORMAL
[2018-10-24] MEDS ORDERED: NITROGLYCERIN 0.4MG TABLET SL SL PRN (20:30)
[2018-10-24] MEDS ORDERED: ASPIRIN 81MG TABLET PO ONE (20:30)
[2018-10-24] MEDS ORDERED: METHADONE HCL 10MG TABLET PO SCH (20:30)
[2018-10-24] MEDS ORDERED: LEVOFLOXACIN 750MG PREMIX 150 ML IV ONE (20:30)
[2018-10-24] MEDS ORDERED: KETOROLAC 15MG/ML VIAL IV ONE (20:30)
[2018-10-24 20:52] LABS: CLARITY URINE CLEAR (CLEAR); COLOR URINE YELLOW (YELLOW); KETONES URINE NEGATIVE (NEGATIVE); LEUKOCYTE ESTERASE URINE 1+ (NEGATIVE); NITRITE URINE NEGATIVE (NEGATIVE); OCCULT BLOOD URINE NEGATIVE (NEGATIVE); PROTEIN URINE NEGATIVE (NEGATIVE); SPECIFIC GRAVITY URINE 1.016 (1.005-1.030)
[2018-10-24] MEDS ORDERED: DOCUSATE SODIUM 100MG CAPSULE PO PRN (22:00)
[2018-10-24] MEDS ORDERED: CLONIDINE 0.1MG TABLET PO PRN (22:00)
[2018-10-24] MEDS ORDERED: ACETAMINOPHEN 325MG TABLET PO PRN (22:00)
[2018-10-24] MEDS ORDERED: DIPHENHYDRAMINE 50MG/ML VIAL IV PRN (22:00)
[2018-10-24] MEDS ORDERED: IPRATROPIUM/ALBUTEROL 0.5-3(2.5)MG/3ML NEB INH PRN (22:00)
[2018-10-24] MEDS ORDERED: MAGNESIUM/ALUMINUM HYDROXIDE/SIMETHICONE 30ML UDC PO PRN (22:00)
[2018-10-25 06:25] LABS: HEMATOCRIT. 31.6 % (36.0-48.0); HEMOGLOBIN. 10.6 g/dL (12.0-16.0); MEAN CORPUSCULAR HEMOGLOBIN 31.7 pg (28.0-32.0); MEAN CORPUSCULAR VOLUME 94.5 fL (81.0-99.0); MEAN PLATELET VOLUME 9.2 fl (7.4-10.4); PLATELET 297 x1000/uL (130-400); RED BLOOD CELL COUNT 3.34 mill/uL (4.2-5.4); RED CELL DISTRIBUTION WIDTH 20.4 % (11.6-14.6)
[2018-10-25 06:34] LABS: CHLORIDE 113 mEq/L (98-107)
[2018-10-25 06:40] LABS: PHOSPHORUS 2.9 mg/dL (2.5-4.9)
[2018-10-25 09:13] LABS: PLATELET ESTIMATE NORMAL
[2018-10-25 09:50] VITALS: BP 122/59
[2018-10-25 10:00] VITALS: BP 122/59
[2018-10-25 12:00] VITALS: BP 123/52
[2018-10-25] MEDS: METHADONE HCL 10MG TABLET PO SCH (12:36)
[2018-10-25] MEDS: OMEPRAZOLE 20MG CAPSULE EXTENDED RELEASE PO SCH (12:36)
[2018-10-25] MEDS: GUAIFENESIN 200MG/10ML SUGAR FREE UDC PO PRN (12:38)
[2018-10-25 16:32] VITALS: BP 127/56
[2018-10-25 20:21] VITALS: BP 100/58
[2018-10-25] MEDS: GUAIFENESIN 600MG ER TABLET PO SCH (20:42)
[2018-10-26] VITALS (7 sets, daily range): BP systolic 105–121; BP diastolic 54–70
[2018-10-26 07:08] LABS: HEMATOCRIT. 33.7 % (36.0-48.0); HEMOGLOBIN. 11.2 g/dL (12.0-16.0); MEAN CORPUSCULAR HEMOGLOBIN 31.2 pg (28.0-32.0); MEAN CORPUSCULAR VOLUME 94.3 fL (81.0-99.0); MEAN PLATELET VOLUME 9.2 fl (7.4-10.4); PLATELET 290 x1000/uL (130-400); RED BLOOD CELL COUNT 3.58 mill/uL (4.2-5.4); RED CELL DISTRIBUTION WIDTH 20.6 % (11.6-14.6)
[2018-10-26 07:19] LABS: CHLORIDE 109 mEq/L (98-107)
[2018-10-26] MEDS: GUAIFENESIN 200MG/10ML SUGAR FREE UDC PO PRN (09:11)
[2018-10-26] MEDS: GUAIFENESIN 600MG ER TABLET PO SCH (09:11)
[2018-10-26] MEDS: METHADONE HCL 10MG TABLET PO SCH (09:11)
[2018-10-26] MEDS: OMEPRAZOLE 20MG CAPSULE EXTENDED RELEASE PO SCH (09:13)
[2018-10-26 12:22] LABS: ATYPICAL LYMPHOCYTES 1
[2018-10-26 12:24] LABS: PLATELET ESTIMATE NORMAL
[2018-10-26 12:31] LABS: *BARBITURATES SCREEN URINE NEGATIVE (NEGATIVE); *BENZODIAZEPINES SCREEN URINE NEGATIVE (NEGATIVE)
[2018-10-26 12:32] LABS: *AMPHETAMINES SCREEN URINE NEGATIVE (NEGATIVE); *COCAINE SCREEN URINE PRESUMTIVE POSITIVE (NEGATIVE); CANNABINOID URINE SCREEN NEGATIVE (NEGATIVE); METHADONE URINE SCREEN PRESUMTIVE POSITIVE (NEGATIVE); OPIATES URINE SCREEN NEGATIVE (NEGATIVE); PHENCYCLIDINE URINE SCREEN NEGATIVE (NEGATIVE)
== END 2018-10-26 17:40 | disposition home or self-care (01) | DRG 145 ==
LOC: ER 17:03 → EDBEDREQSVC 20:45 → EDBEDREQ 20:45 → 8WST 22:07 → EDBEDREQ 22:09 → ENRESERV 10-25 09:03
PROVIDERS: ADMIT Family Medicine Adult Medicine; ATTEND Family Medicine Adult Medicine
DX: R07.81 Pleurodynia (principal); I11.0 Hypertensive heart disease with heart failure; I50.9 Heart failure, unspecified; I07.1 Rheumatic tricuspid insufficiency; I27.20 Pulmonary hypertension, unspecified; J45.909 Unspecified asthma, uncomplicated; F14.10 Cocaine abuse, uncomplicated; F11.10 Opioid abuse, uncomplicated; G89.29 Other chronic pain; Z88.8 Allergy status to other drugs, medicaments and biological substances; Z79.899 Other long term (current) drug therapy; Z85.6 Personal history of leukemia; Z92.21 Personal history of antineoplastic chemotherapy
CPT/HCPCS: 36415; 71045; 80048; 80305; 83605; 83735; 83880; 84100; 84145; 84484; 86850; 86900; 93005; 99285; J1885; J1956

== ENCOUNTER 2018-12-15 15:49 | Inpatient (IN) | payer MEDICAID ==
[~2018-12-15] VITALS: Ht 162.6 cm; Wt 46.7 kg
[~2018-12-15 15:49] MED LIST changes: -BENZ100C86 PO; -COR6 PO
[2018-12-15] MEDS ORDERED: MORPHINE SULFATE 4 MG/ML CPJ (NOT FOR IM USE) IV ONE (16:30)
[2018-12-15] MEDS ORDERED: SODIUM CHLORIDE 0.9% 500 ML IV ONE (16:30)
[2018-12-15] MEDS ORDERED: ONDANSETRON HCL 4MG/2ML INJ IV ONE ×2 (16:30→20:00)
[2018-12-15] MEDS ORDERED: FAMOTIDINE 20MG/2ML VIAL IV ONE (16:30)
[2018-12-15] MEDS ORDERED: HALOPERIDOL 5MG TABLET PO ONE (17:15)
[2018-12-15 17:39] LABS: BASOPHILS % 1.1 % (0.0-2.0); EOSINOPHILS % 0.1 % (0.0-5.0); HEMATOCRIT. 34.1 % (36.0-48.0); HEMOGLOBIN. 11.1 g/dL (12.0-16.0); LYMPHOCYTES % 18.9 % (20.0-50.0); MEAN CORPUSCULAR HEMOGLOBIN 31.3 pg (28.0-32.0); MEAN CORPUSCULAR VOLUME 96.1 fL (81.0-99.0); MEAN PLATELET VOLUME 8.9 fl (7.4-10.4); NEUTROPHILS % 69.9 % (40.0-76.0); PLATELET 757 x1000/uL (130-400); RED BLOOD CELL COUNT 3.55 mill/uL (4.2-5.4); RED CELL DISTRIBUTION WIDTH 19.9 % (11.6-14.6)
[2018-12-15] MEDS ORDERED: LORAZEPAM 2MG/ML CPJ IV ONE (17:45)
[2018-12-15 17:46] LABS: CHLORIDE 107 mEq/L (98-107); PROTHROMBIN TIME 10.4 sec (9.1-11.1)
[2018-12-15 17:50] LABS: ETHANOL BLOOD < 10 mg/dL
[2018-12-15] MEDS ORDERED: ZIPRASIDONE MESYLATE 20MG/VIAL IM ONE (18:45)
[2018-12-15] MEDS ORDERED: DIPHENHYDRAMINE 50MG/ML VIAL IM ONE (18:45)
[2018-12-15] MEDS ORDERED: IOHEXOL-300 100 ML BOTTLE ONE (18:59)
[2018-12-15] MEDS ORDERED: AZITHROMYCIN 500 MG in DEXT 5% WATER 250 ML IV SCH (19:00)
[2018-12-15] MEDS ORDERED: CEFTRIAXONE 1 G PREMIX 50 ML IV ONE (19:00)
[2018-12-15] MEDS ORDERED: PIPERACILLIN/TAZ 3.375G PREMIX 50 ML IV ONE (20:45)
[2018-12-15] MEDS ORDERED: ACETAMINOPHEN 325MG TABLET PO PRN (21:15)
[2018-12-15] MEDS ORDERED: DOCUSATE SODIUM 100MG CAPSULE PO PRN (21:15)
[2018-12-15] MEDS ORDERED: HYDROCODONE/ACETAMINOPHEN 5/325MG TABLET PO PRN (21:15)
[2018-12-15] MEDS ORDERED: MAGNESIUM/ALUMINUM HYDROXIDE/SIMETHICONE 30ML UDC PO PRN (21:15)
[2018-12-15] MEDS ORDERED: GUAIFENESIN 200MG/10ML SUGAR FREE UDC PO PRN (21:15)
[2018-12-15] MEDS ORDERED: ONDANSETRON HCL 4MG/2ML INJ IV PRN (21:15)
[2018-12-15] MEDS ORDERED: DIPHENHYDRAMINE 50MG/ML VIAL IV PRN (21:15)
[2018-12-15] MEDS ORDERED: CLONIDINE 0.1MG TABLET PO PRN (21:15)
[2018-12-15] MEDS ORDERED: IPRATROPIUM/ALBUTEROL 0.5-3(2.5)MG/3ML NEB INH PRN (21:15)
[2018-12-15 22:47] LABS: CLARITY URINE CLEAR (CLEAR); COLOR URINE YELLOW (YELLOW); KETONES URINE NEGATIVE (NEGATIVE); LEUKOCYTE ESTERASE URINE 3+ (NEGATIVE); NITRITE URINE NEGATIVE (NEGATIVE); OCCULT BLOOD URINE TRACE (NEGATIVE); PROTEIN URINE NEGATIVE (NEGATIVE); SPECIFIC GRAVITY URINE 1.014 (1.005-1.030); UROBILINOGEN URINE 0.2 E.U./dL (0.2-1.0)
[2018-12-15 22:56] LABS: PHOSPHORUS 3.1 mg/dL (2.5-4.9)
[2018-12-15 23:11] LABS: *AMPHETAMINES SCREEN URINE NEGATIVE (NEGATIVE); *BARBITURATES SCREEN URINE NEGATIVE (NEGATIVE); *BENZODIAZEPINES SCREEN URINE NEGATIVE (NEGATIVE); *COCAINE SCREEN URINE PRESUMTIVE POSITIVE (NEGATIVE)
[2018-12-15 23:12] LABS: CANNABINOID URINE SCREEN NEGATIVE (NEGATIVE); OPIATES URINE SCREEN PRESUMTIVE POSITIVE (NEGATIVE); PHENCYCLIDINE URINE SCREEN NEGATIVE (NEGATIVE)
[2018-12-15 23:14] LABS: METHADONE URINE SCREEN PRESUMTIVE POSITIVE (NEGATIVE)
[2018-12-15 23:18] LABS: HEPATITIS B SURFACE ANTIGEN NEGATIVE
[2018-12-15 23:48] LABS: HEPATITIS A AB IGM NEGATIVE (NEGATIVE)
[2018-12-16] VITALS: BP 154/89
[2018-12-16 00:45] VITALS: BP 155/80
[2018-12-16] MEDS: LORAZEPAM 2MG/ML CPJ IV PRN ×2 (02:33→13:35)
[2018-12-16] MEDS: SODIUM CHLORIDE 0.9% 1,000 ML IV SCH ×2 (02:47→20:41)
[2018-12-16] MEDS ORDERED: DEXTROSE 50% WATER 50ML SYRINGE IV PRN (03:30)
[2018-12-16 04:00] VITALS: BP 144/79
[2018-12-16] MEDS: BLOOD SUGAR DIAGNOSTIC STRIP TEST SCH ×4 (05:41→21:00)
[2018-12-16] MEDS: INSULIN LISPRO 100 UNITS/ML SUBCUT SCH ×4 (05:42→21:00)
[2018-12-16] MEDS: ENOXAPARIN 40MG/0.4ML SYR SUBCUT SCH (08:18)
[2018-12-16 09:38] LABS: HEMATOCRIT. 32.3 % (36.0-48.0); HEMOGLOBIN. 10.8 g/dL (12.0-16.0); MEAN CORPUSCULAR HEMOGLOBIN 31.4 pg (28.0-32.0); MEAN CORPUSCULAR VOLUME 94.1 fL (81.0-99.0); MEAN PLATELET VOLUME 7.5 fl (7.4-10.4); PLATELET 530 x1000/uL (130-400); RED BLOOD CELL COUNT 3.44 mill/uL (4.2-5.4)
[2018-12-16 09:40] LABS: CHLORIDE 117 mEq/L (98-107)
[2018-12-16 09:47] LABS: LDL CHOLESTEROL 71 mg/dL (5-100)
[2018-12-16 09:48] LABS: CREATINE KINASE 195 IU/L (26-192); HDL CHOLESTEROL 81 mg/dL (40-59)
[2018-12-16 12:00] VITALS: BP 148/78
[2018-12-16] MEDS: CEFTRIAXONE 1,000 MG in DEXTROSE 5% WATER 50 ML IV SCH (13:58)
[2018-12-16 16:00] VITALS: BP 145/81
[2018-12-16] MEDS ORDERED: HALOPERIDOL 5MG TABLET PO PRN (18:10)
[2018-12-16 18:13] LABS: PLATELET ESTIMATE INCREASED
[2018-12-16] MEDS: FERROUS SULFATE 325MG TABLET PO SCH (18:43)
[2018-12-16] MEDS: FUROSEMIDE 20MG TABLET PO SCH (18:43)
[2018-12-16] MEDS: AZITHROMYCIN 500 MG in DEXT 5% WATER 250 ML IV SCH (18:44)
[2018-12-16 20:00] VITALS: BP 163/68
[2018-12-16] MEDS ORDERED: HALOPERIDOL LACTATE 5MG/ML VIAL IM PRN (20:45)
[2018-12-17] VITALS: BP 168/94
[2018-12-17] MEDS: IPRATROPIUM/ALBUTEROL 0.5-3(2.5)MG/3ML NEB HHN SCH (02:13)
[2018-12-17 04:00] VITALS: BP 164/94
[2018-12-17 06:42] LABS: CHLORIDE 105 mEq/L (98-107)
[2018-12-17 06:46] LABS: HEMOGLOBIN. 11.3 g/dL (12.0-16.0); MEAN CORPUSCULAR HEMOGLOBIN 31.4 pg (28.0-32.0); MEAN CORPUSCULAR VOLUME 94.6 fL (81.0-99.0); MEAN PLATELET VOLUME 7.7 fl (7.4-10.4); PLATELET 388 x1000/uL (130-400); RED CELL DISTRIBUTION WIDTH 18.9 % (11.6-14.6)
[2018-12-17] MEDS: BLOOD SUGAR DIAGNOSTIC STRIP TEST SCH ×4 (07:16→21:00)
[2018-12-17] MEDS: INSULIN LISPRO 100 UNITS/ML SUBCUT SCH ×4 (07:16→21:00)
[2018-12-17 08:00] VITALS: BP 145/85
[2018-12-17] MEDS: FERROUS SULFATE 325MG TABLET PO SCH ×2 (08:47→17:20)
[2018-12-17] MEDS: ENOXAPARIN 40MG/0.4ML SYR SUBCUT SCH (08:47)
[2018-12-17] MEDS: FUROSEMIDE 20MG TABLET PO SCH (08:47)
[2018-12-17 10:30] LABS: BG BASE EXCESS 3.7 mmol/L (-2.0-2.0); BG CARBOXYHEMOGLOBIN 0.6 % (0.5-1.5); BG DEOXYHEMOGLOBIN 3.9 % (0.0-5.0); BG FRACTION INSPIRED OXYGEN 21; BG HCO3 ACT 26.6 mmol/L (22.0-26.0); BG METHEMOGLOBIN 0.3 % (0.0-1.5); BG OXYGEN SATURATION 96.1 % (92.0-98.5); BG OXYHEMOGLOBIN 95.2 % (94.0-97.0); BG PCO2 34.2 mmHg (35.0-45.0); BG PH 7.509 (7.350-7.450); BG PO2 84.7 mmHg (75.0-100.0); BG SAMPLE SITE RIGHT RADIAL; BG TOTAL HEMOGLOBIN 11.7 g/dL (12.0-18.0); BG VENT MODE ROOM AIR
[2018-12-17 12:00] VITALS: BP 160/92
[2018-12-17 12:21] LABS: PLATELET ESTIMATE NORMAL
[2018-12-17] MEDS: AMLODIPINE 5MG TABLET PO SCH ×2 (15:30→21:00)
[2018-12-17] MEDS: CEFTRIAXONE 1,000 MG in DEXTROSE 5% WATER 50 ML IV SCH (15:30)
[2018-12-17] MEDS: METHADONE HCL 10MG TABLET PO SCH (15:31)
[2018-12-17 16:00] VITALS: BP 156/98
[2018-12-17] MEDS: AZITHROMYCIN 500 MG in DEXT 5% WATER 250 ML IV SCH (17:17)
[2018-12-17] MEDS: THIAMINE HCL 100MG TABLET PO SCH (18:38)
[2018-12-17] MEDS: FOLIC ACID/VITAMIN B COMP W-C TABLET PO SCH (18:39)
[2018-12-17] MEDS: MULTIVITAMINS,THER W-MINERALS TABLET PO SCH (18:39)
[2018-12-17 20:40] LABS: FOLIC ACID (FOLATE) SERUM > 20.00 ng/mL (>5.38)
[2018-12-17 20:41] LABS: VITAMIN B12 SERUM 1743 pg/mL (211-911)
[2018-12-17] MEDS: SODIUM CHLORIDE 0.9% 1,000 ML IV SCH (22:07)
[2018-12-18 07:03] LABS: HEMATOCRIT. 35.4 % (36.0-48.0); HEMOGLOBIN. 11.9 g/dL (12.0-16.0); MEAN CORPUSCULAR HEMOGLOBIN 31.6 pg (28.0-32.0); MEAN CORPUSCULAR VOLUME 94.2 fL (81.0-99.0); MEAN PLATELET VOLUME 8.2 fl (7.4-10.4); PLATELET 344 x1000/uL (130-400); RED BLOOD CELL COUNT 3.76 mill/uL (4.2-5.4); RED CELL DISTRIBUTION WIDTH 18.9 % (11.6-14.6)
[2018-12-18 07:30] LABS: CHLORIDE 102 mEq/L (98-107)
[2018-12-18 08:00] VITALS: BP 117/73
[2018-12-18] MEDS: INSULIN LISPRO 100 UNITS/ML SUBCUT SCH ×4 (08:10→21:00)
[2018-12-18] MEDS: ENOXAPARIN 40MG/0.4ML SYR SUBCUT SCH (08:34)
[2018-12-18] MEDS: THIAMINE HCL 100MG TABLET PO SCH (08:35)
[2018-12-18] MEDS: BLOOD SUGAR DIAGNOSTIC STRIP TEST SCH ×4 (08:35→21:07)
[2018-12-18] MEDS: FOLIC ACID/VITAMIN B COMP W-C TABLET PO SCH (08:35)
[2018-12-18] MEDS: FUROSEMIDE 20MG TABLET PO SCH (08:35)
[2018-12-18] MEDS: FERROUS SULFATE 325MG TABLET PO SCH ×2 (08:35→17:34)
[2018-12-18] MEDS: MULTIVITAMINS,THER W-MINERALS TABLET PO SCH (08:35)
[2018-12-18] MEDS: METHADONE HCL 10MG TABLET PO SCH (08:35)
[2018-12-18] MEDS: AMLODIPINE 5MG TABLET PO SCH ×2 (08:35→21:00)
[2018-12-18 09:26] LABS: T4 FREE 1.21 ng/dL (0.76-1.46)
[2018-12-18 10:33] LABS: PLATELET ESTIMATE NORMAL
[2018-12-18 12:00] VITALS: BP 122/64
[2018-12-18] MEDS: SODIUM CHLORIDE 0.9% 1,000 ML IV SCH (13:47)
[2018-12-18] MEDS: IPRATROPIUM/ALBUTEROL 0.5-3(2.5)MG/3ML NEB HHN SCH ×2 (15:24→20:28)
[2018-12-18] MEDS: CEFTRIAXONE 1,000 MG in DEXTROSE 5% WATER 50 ML IV SCH (15:49)
[2018-12-18 16:00] VITALS: BP 109/68
[2018-12-18] MEDS: AZITHROMYCIN 500 MG in DEXT 5% WATER 250 ML IV SCH (17:28)
[2018-12-18 20:00] VITALS: BP 106/56
[2018-12-19] VITALS: BP 110/62
[2018-12-19] MEDS: IPRATROPIUM/ALBUTEROL 0.5-3(2.5)MG/3ML NEB HHN SCH ×4 (02:22→20:56)
[2018-12-19 04:00] VITALS: BP 105/55
[2018-12-19] MEDS: BLOOD SUGAR DIAGNOSTIC STRIP TEST SCH ×4 (05:31→20:45)
[2018-12-19] MEDS: MULTIVITAMINS,THER W-MINERALS TABLET PO SCH (07:57)
[2018-12-19] MEDS: METHADONE HCL 10MG TABLET PO SCH (07:57)
[2018-12-19] MEDS: ENOXAPARIN 40MG/0.4ML SYR SUBCUT SCH (07:57)
[2018-12-19] MEDS: THIAMINE HCL 100MG TABLET PO SCH (07:57)
[2018-12-19] MEDS: FOLIC ACID/VITAMIN B COMP W-C TABLET PO SCH (07:57)
[2018-12-19] MEDS: FUROSEMIDE 20MG TABLET PO SCH (07:57)
[2018-12-19] MEDS: AMLODIPINE 5MG TABLET PO SCH ×2 (07:57→20:45)
[2018-12-19] MEDS: SODIUM CHLORIDE 0.9% 1,000 ML IV SCH (07:58)
[2018-12-19] MEDS: INSULIN LISPRO 100 UNITS/ML SUBCUT SCH ×4 (07:58→20:50)
[2018-12-19] MEDS: FERROUS SULFATE 325MG TABLET PO SCH ×2 (07:59→15:51)
[2018-12-19 08:00] VITALS: BP 102/54
[2018-12-19 09:04] LABS: HEMATOCRIT. 31.4 % (36.0-48.0); HEMOGLOBIN. 10.6 g/dL (12.0-16.0); MEAN CORPUSCULAR HEMOGLOBIN 31.7 pg (28.0-32.0); MEAN CORPUSCULAR VOLUME 93.5 fL (81.0-99.0); MEAN PLATELET VOLUME 8.9 fl (7.4-10.4); PLATELET 285 x1000/uL (130-400); RED BLOOD CELL COUNT 3.36 mill/uL (4.2-5.4); RED CELL DISTRIBUTION WIDTH 18.9 % (11.6-14.6)
[2018-12-19 09:12] LABS: CHLORIDE 100 mEq/L (98-107)
[2018-12-19 12:00] VITALS: BP 105/54
[2018-12-19] MEDS: QUETIAPINE FUMARATE 25MG TABLET PO SCH ×2 (12:54→20:45)
[2018-12-19] MEDS: CEFTRIAXONE 1,000 MG in DEXTROSE 5% WATER 50 ML IV SCH (15:50)
[2018-12-19] MEDS: AZITHROMYCIN 500 MG in DEXT 5% WATER 250 ML IV SCH (15:51)
[2018-12-19 16:00] VITALS: BP 105/49
[2018-12-19 17:49] LABS: PLATELET ESTIMATE NORMAL
[2018-12-19] MEDS: POLYETHYLENE GLYCOL 3350 (17GM) 1 DOSE PACK PO SCH (18:52)
[2018-12-19 20:02] VITALS: BP 102/50
[2018-12-20 00:05] VITALS: BP 98/52
[2018-12-20] MEDS: IPRATROPIUM/ALBUTEROL 0.5-3(2.5)MG/3ML NEB HHN SCH ×3 (01:10→12:55)
[2018-12-20 04:00] VITALS: BP 110/47
[2018-12-20] MEDS: SODIUM CHLORIDE 0.9% 1,000 ML IV SCH (04:33)
[2018-12-20 06:53] LABS: HEMATOCRIT. 26.9 % (36.0-48.0); HEMOGLOBIN. 9.2 g/dL (12.0-16.0); MEAN CORPUSCULAR HEMOGLOBIN 32.3 pg (28.0-32.0); MEAN CORPUSCULAR VOLUME 94.5 fL (81.0-99.0); MEAN PLATELET VOLUME 9.2 fl (7.4-10.4); PLATELET 206 x1000/uL (130-400); RED BLOOD CELL COUNT 2.84 mill/uL (4.2-5.4); RED CELL DISTRIBUTION WIDTH 18.4 % (11.6-14.6)
[2018-12-20 07:04] LABS: CHLORIDE 103 mEq/L (98-107)
[2018-12-20] MEDS: BLOOD SUGAR DIAGNOSTIC STRIP TEST SCH ×3 (07:40→17:55)
[2018-12-20 08:00] VITALS: BP 96/48
[2018-12-20] MEDS: INSULIN LISPRO 100 UNITS/ML SUBCUT SCH ×3 (08:10→18:03)
[2018-12-20] MEDS: FUROSEMIDE 20MG TABLET PO SCH (09:00)
[2018-12-20] MEDS ORDERED: AZITHROMYCIN 500 MG TABLET PO SCH (09:00)
[2018-12-20] MEDS: AMLODIPINE 5MG TABLET PO SCH (09:00)
[2018-12-20] MEDS: METHADONE HCL 10MG TABLET PO SCH (09:58)
[2018-12-20] MEDS: POLYETHYLENE GLYCOL 3350 (17GM) 1 DOSE PACK PO SCH (09:59)
[2018-12-20] MEDS: ENOXAPARIN 40MG/0.4ML SYR SUBCUT SCH (10:00)
[2018-12-20] MEDS: FERROUS SULFATE 325MG TABLET PO SCH ×2 (10:00→17:56)
[2018-12-20] MEDS: THIAMINE HCL 100MG TABLET PO SCH (10:01)
[2018-12-20] MEDS: MULTIVITAMINS,THER W-MINERALS TABLET PO SCH (10:01)
[2018-12-20] MEDS: FOLIC ACID/VITAMIN B COMP W-C TABLET PO SCH (10:01)
[2018-12-20] MEDS: QUETIAPINE FUMARATE 25MG TABLET PO SCH (10:01)
[2018-12-20 12:00] VITALS: BP 93/43
[2018-12-20 12:21] LABS: NUCLEATED RED BLOOD CELLS 1 /100 WBC
[2018-12-20] MEDS ORDERED: THIA100T72 PO (12:54)
[2018-12-20] MEDS ORDERED: QUET25TA PO (12:54)
[2018-12-20] MEDS ORDERED: AMLO5TAB88 PO (12:54)
[2018-12-20 13:23] LABS: PLATELET ESTIMATE NORMAL
[2018-12-20] MEDS: CEFTRIAXONE 1,000 MG in DEXTROSE 5% WATER 50 ML IV SCH (13:48)
[2018-12-20 15:56] VITALS: BP 97/47
[2018-12-20 16:00] VITALS: BP 97/47
== END 2018-12-20 19:01 | disposition home or self-care (01) | DRG 816 ==
LOC: ER 15:49 → 7WST 19:01 → ENRESERV 23:04
PROVIDERS: ADMIT Internal Medicine; ATTEND Internal Medicine
DX: T40.5X1A Poisoning by cocaine, accidental (unintentional), initial encounter (principal); J96.00 Acute respiratory failure, unspecified whether with hypoxia or hypercapnia; A41.9 Sepsis, unspecified organism; G92 Toxic encephalopathy; J18.9 Pneumonia, unspecified organism; I11.0 Hypertensive heart disease with heart failure; E87.0 Hyperosmolality and hypernatremia; C95.90 Leukemia, unspecified not having achieved remission; I50.30 Unspecified diastolic (congestive) heart failure; E11.65 Type 2 diabetes mellitus with hyperglycemia; M32.9 Systemic lupus erythematosus, unspecified; I27.20 Pulmonary hypertension, unspecified; N39.0 Urinary tract infection, site not specified; B19.20 Unspecified viral hepatitis C without hepatic coma; D64.9 Anemia, unspecified; F14.10 Cocaine abuse, uncomplicated; E87.1 Hypo-osmolality and hyponatremia; I36.1 Nonrheumatic tricuspid (valve) insufficiency; J44.0 Chronic obstructive pulmonary disease with (acute) lower respiratory infection; J68.0 Bronchitis and pneumonitis due to chemicals, gases, fumes and vapors; Z88.8 Allergy status to other drugs, medicaments and biological substances; Z59.0 Homelessness; Z72.0 Tobacco use; Z78.1 Physical restraint status; Z87.11 Personal history of peptic ulcer disease; Z90.3 Acquired absence of stomach [part of]; Y92.89 Other specified places as the place of occurrence of the external cause
CPT/HCPCS: 36415; 36600; 70551; 71045; 74018; 74177; 80048; 80061; 80305; 80320; 82140; 82375; 82550; 82607; 82746; 82805; 82962; 83036; 83735; 83880; 84100; 84439; 84443; 84481; 84484; 86705; 86709; 86803; 87340; 93005; 93306; 93970; 94640; 96365; 96366; 96372; 96375; 97166; 97530; 99285; J0456; J0696; J1200; J1630; J1650; J2060; J2270; J2405; J2543; J3486; J3490; J7040; J7060; J7620; Q9967; A4315; G0480

== ENCOUNTER 2019-03-06 16:59 | Inpatient (IN) | payer MEDICAID ==
[~2019-03-06] VITALS: Ht 160 cm; Wt 54.0 kg
[~2019-03-06 16:59] MED LIST changes: +AMLO5TAB88 PO; -LEVO750T46 MT; +QUET25TA PO; +THIA100T72 PO
[2019-03-06] MEDS ORDERED: IPRATROPIUM BROMIDE (0.02%) 0.5MG/2.5ML NEB HHN STA (18:24)
[2019-03-06] MEDS ORDERED: ONDANSETRON HCL 4MG/2ML INJ IV STA (18:24)
[2019-03-06] MEDS ORDERED: ALBUTEROL (0.083%) 2.5MG/3ML NEB HHN STA (18:24)
[2019-03-06] MEDS ORDERED: SODIUM CHLORIDE 0.9% 1000ML BAG (SEPSIS BOLUS) IV ONE (18:30)
[2019-03-06] MEDS ORDERED: PIPERACILLIN/TAZ 3.375G PREMIX 50 ML IV ONE (18:30)
[2019-03-06] MEDS ORDERED: VANCOMYCIN 1 G PREMIX 200 ML IV ONE (18:30)
[2019-03-06 18:36] LABS: HEMATOCRIT. 27.4 % (36.0-48.0); HEMOGLOBIN. 9.4 g/dL (12.0-16.0); MEAN CORPUSCULAR HEMOGLOBIN 34.3 pg (28.0-32.0); MEAN PLATELET VOLUME 9.3 fl (7.4-10.4); PLATELET 345 x1000/uL (130-400); RED BLOOD CELL COUNT 2.74 mill/uL (4.2-5.4); RED CELL DISTRIBUTION WIDTH 20.7 % (11.6-14.6)
[2019-03-06 18:41] LABS: CHLORIDE 105 mEq/L (98-107); INR 1.1
[2019-03-06 19:04] LABS: PLATELET ESTIMATE NORMAL
[2019-03-06] MEDS ORDERED: DIPHENHYDRAMINE 50MG CAPSULE PO ONE (20:00)
[2019-03-06] MEDS ORDERED: METHYLPREDNISOLONE SOD SUCC 125 MG/2 ML VIAL IV ONE (20:45)
[2019-03-06 20:54] LABS: CLARITY URINE CLEAR (CLEAR); COLOR URINE YELLOW (YELLOW); KETONES URINE NEGATIVE (NEGATIVE); LEUKOCYTE ESTERASE URINE NEGATIVE (NEGATIVE); NITRITE URINE NEGATIVE (NEGATIVE); OCCULT BLOOD URINE NEGATIVE (NEGATIVE); PROTEIN URINE NEGATIVE (NEGATIVE); SPECIFIC GRAVITY URINE 1.008 (1.005-1.030)
[2019-03-06] MEDS ORDERED: CLONIDINE 0.1MG TABLET PO PRN (22:30)
[2019-03-06] MEDS ORDERED: NA PHOS,M-B/NA PHOS,DI-BA ENEMA 118ML PR PRN (22:30)
[2019-03-06] MEDS ORDERED: ACETAMINOPHEN 325MG TABLET PO PRN (22:30)
[2019-03-06] MEDS ORDERED: ONDANSETRON HCL 4MG/2ML INJ IV PRN (22:30)
[2019-03-06] MEDS ORDERED: LORAZEPAM 2MG/ML CPJ IV PRN (22:30)
[2019-03-06 23:00] VITALS: BP 119/59
[2019-03-06 23:28] VITALS: BP 119/59
[2019-03-07] VITALS: BP 121/59
[2019-03-07 00:31] LABS: CHLORIDE 112 mEq/L (98-107)
[2019-03-07] MEDS ORDERED: LEVOFLOXACIN 500MG PREMIX 100 ML IV NR (02:00)
[2019-03-07 04:00] VITALS: BP 99/44
[2019-03-07] MEDS: METHYLPREDNISOLONE SOD SUCC 125 MG/2 ML VIAL IV SCH ×2 (05:33→11:46)
[2019-03-07] MEDS ORDERED: PNEUMOCOCCAL 23-VAL P-SAC VAC 0.5 ML IM ONE (06:00)
[2019-03-07 06:38] LABS: HEMATOCRIT. 25.8 % (36.0-48.0); HEMOGLOBIN. 8.6 g/dL (12.0-16.0); MEAN CORPUSCULAR HEMOGLOBIN 33.7 pg (28.0-32.0); MEAN CORPUSCULAR VOLUME 101.7 fL (81.0-99.0); MEAN PLATELET VOLUME 9.5 fl (7.4-10.4); PLATELET 276 x1000/uL (130-400); RED BLOOD CELL COUNT 2.54 mill/uL (4.2-5.4); RED CELL DISTRIBUTION WIDTH 20.4 % (11.6-14.6)
[2019-03-07 06:44] LABS: CHLORIDE 110 mEq/L (98-107)
[2019-03-07 06:55] LABS: T4 FREE 0.94 ng/dL (0.76-1.46)
[2019-03-07 06:57] LABS: HDL CHOLESTEROL 65 mg/dL (40-59)
[2019-03-07 06:58] LABS: LDL CHOLESTEROL 64 mg/dL (5-100)
[2019-03-07 08:00] VITALS: BP 115/65
[2019-03-07] MEDS: ASPIRIN 81MG EC TABLET PO SCH (08:20)
[2019-03-07] MEDS: ENOXAPARIN 40MG/0.4ML SYR SUBCUT SCH (08:21)
[2019-03-07 09:56] LABS: T4 FREE 0.94 ng/dL (0.76-1.46)
[2019-03-07] MEDS: METHADONE HCL 10MG TABLET PO SCH (10:50)
[2019-03-07] MEDS: IPRATROPIUM/ALBUTEROL 0.5-3(2.5)MG/3ML NEB INH PRN ×2 (11:51→16:53)
[2019-03-07 12:00] VITALS: BP 115/62
[2019-03-07] MEDS: FUROSEMIDE 40MG/4ML VIAL IVP SCH (12:11)
[2019-03-07 12:57] LABS: PLATELET ESTIMATE NORMAL
[2019-03-07] MEDS: GUAIFENESIN 200MG/10ML SUGAR FREE UDC PO PRN ×3 (13:02→23:04)
[2019-03-07] MEDS: IPRATROPIUM/ALBUTEROL 0.5-3(2.5)MG/3ML NEB HHN SCH ×2 (14:44→20:11)
[2019-03-07] MEDS: BUDESONIDE 0.5MG/2ML NEB HHN SCH ×2 (14:47→20:11)
[2019-03-07 16:00] VITALS: BP 117/58
[2019-03-07 16:53] LABS: *BARBITURATES SCREEN URINE NEGATIVE (NEGATIVE); *BENZODIAZEPINES SCREEN URINE NEGATIVE (NEGATIVE); *COCAINE SCREEN URINE NEGATIVE (NEGATIVE); OPIATES URINE SCREEN NEGATIVE (NEGATIVE)
[2019-03-07 16:54] LABS: *AMPHETAMINES SCREEN URINE NEGATIVE (NEGATIVE); CANNABINOID URINE SCREEN NEGATIVE (NEGATIVE); PHENCYCLIDINE URINE SCREEN NEGATIVE (NEGATIVE)
[2019-03-07 16:59] LABS: METHADONE URINE SCREEN PRESUMTIVE POSITIVE (NEGATIVE)
[2019-03-07 17:10] LABS: CREATINE KINASE 42 IU/L (26-192)
[2019-03-07 17:11] LABS: CREATINE KINASE MB FRACTION 2.6 ng/mL (0.5-3.6)
[2019-03-07] MEDS: METHYLPREDNISOLONE SOD SUCC 40 MG/ML VIAL IV SCH (17:33)
[2019-03-07] MEDS: CEFTRIAXONE 1 G PREMIX 50 ML IV SCH (17:34)
[2019-03-07] MEDS: AZITHROMYCIN 500 MG in DEXT 5% WATER 250 ML IV SCH (18:10)
[2019-03-07 20:00] VITALS: BP 116/56
[2019-03-07] MEDS ORDERED: LEVOFLOXACIN 250MG PREMIX 50 ML IV SCH (23:00)
[2019-03-08] VITALS: BP 114/61
[2019-03-08] MEDS: ACETYLCYSTEINE 100MG/ML 10% VIAL 4ML INH SCH ×4 (00:13→17:19)
[2019-03-08] MEDS: IPRATROPIUM/ALBUTEROL 0.5-3(2.5)MG/3ML NEB HHN SCH ×6 (00:14→22:27)
[2019-03-08 01:18] LABS: CREATINE KINASE MB FRACTION 2.4 ng/mL (0.5-3.6)
[2019-03-08 04:00] VITALS: BP 130/59
[2019-03-08 08:00] VITALS: BP 135/69
[2019-03-08] MEDS: ASPIRIN 81MG EC TABLET PO SCH (08:27)
[2019-03-08] MEDS: GUAIFENESIN 200MG/10ML SUGAR FREE UDC PO PRN (08:29)
[2019-03-08] MEDS: METHYLPREDNISOLONE SOD SUCC 40 MG/ML VIAL IV SCH ×2 (08:29→17:21)
[2019-03-08] MEDS: ENOXAPARIN 40MG/0.4ML SYR SUBCUT SCH (08:30)
[2019-03-08] MEDS: METHADONE HCL 10MG TABLET PO SCH (08:32)
[2019-03-08] MEDS: FUROSEMIDE 40MG/4ML VIAL IVP SCH (08:32)
[2019-03-08] MEDS: BUDESONIDE 0.5MG/2ML NEB HHN SCH ×2 (08:49→22:28)
[2019-03-08 09:55] LABS: CREATINE KINASE MB FRACTION 2.6 ng/mL (0.5-3.6)
[2019-03-08 12:00] VITALS: BP 125/69
[2019-03-08] MEDS: CEFTRIAXONE 1 G PREMIX 50 ML IV SCH ×2 (15:39→18:43)
[2019-03-08 16:00] VITALS: BP 112/64
[2019-03-08] MEDS: AZITHROMYCIN 500 MG in DEXT 5% WATER 250 ML IV SCH (19:03)
[2019-03-08 20:00] VITALS: BP 132/72
[2019-03-09] VITALS: BP 130/76
[2019-03-09] MEDS: IPRATROPIUM/ALBUTEROL 0.5-3(2.5)MG/3ML NEB HHN SCH ×6 (01:10→21:03)
[2019-03-09 04:00] VITALS: BP 126/71
[2019-03-09 08:00] VITALS: BP 129/78
[2019-03-09] MEDS: FUROSEMIDE 40MG/4ML VIAL IVP SCH (09:00)
[2019-03-09] MEDS: ACETYLCYSTEINE 100MG/ML 10% VIAL 4ML INH SCH ×2 (09:30→16:27)
[2019-03-09] MEDS: BUDESONIDE 0.5MG/2ML NEB HHN SCH ×2 (09:31→21:07)
[2019-03-09] MEDS: ASPIRIN 81MG EC TABLET PO SCH (10:16)
[2019-03-09] MEDS: METHADONE HCL 10MG TABLET PO SCH (10:18)
[2019-03-09] MEDS: ENOXAPARIN 40MG/0.4ML SYR SUBCUT SCH (10:18)
[2019-03-09] MEDS: METHYLPREDNISOLONE SOD SUCC 40 MG/ML VIAL IV SCH ×3 (10:18→22:54)
[2019-03-09 12:00] VITALS: BP 111/70
[2019-03-09] MEDS: CEFTRIAXONE 1 G PREMIX 50 ML IV SCH (15:45)
[2019-03-09 16:00] VITALS: BP 123/70
[2019-03-09] MEDS: AZITHROMYCIN 500 MG in DEXT 5% WATER 250 ML IV SCH (18:44)
[2019-03-09 20:00] VITALS: BP 114/75
[2019-03-09] MEDS: HYDROCODONE/ACETAMINOPHEN 5/325MG TABLET PO PRN (22:56)
[2019-03-10] VITALS: BP 108/63
[2019-03-10] MEDS: ACETYLCYSTEINE 100MG/ML 10% VIAL 4ML INH SCH ×3 (00:51→12:29)
[2019-03-10] MEDS: IPRATROPIUM/ALBUTEROL 0.5-3(2.5)MG/3ML NEB HHN SCH ×6 (00:51→21:13)
[2019-03-10 04:00] VITALS: BP 116/70
[2019-03-10 08:00] VITALS: BP 139/74
[2019-03-10] MEDS: AZITHROMYCIN 500 MG TABLET PO SCH (08:37)
[2019-03-10] MEDS: ASPIRIN 81MG EC TABLET PO SCH (08:37)
[2019-03-10] MEDS: METHADONE HCL 10MG TABLET PO SCH (08:38)
[2019-03-10] MEDS: ENOXAPARIN 40MG/0.4ML SYR SUBCUT SCH (08:38)
[2019-03-10] MEDS: FUROSEMIDE 40MG/4ML VIAL IVP SCH (10:10)
[2019-03-10 12:00] VITALS: BP 114/68
[2019-03-10] MEDS: BUDESONIDE 0.5MG/2ML NEB HHN SCH (12:29)
[2019-03-10] MEDS: HYDROCODONE/ACETAMINOPHEN 5/325MG TABLET PO PRN (13:29)
[2019-03-10 16:00] VITALS: BP 94/63
[2019-03-10] MEDS: CEFTRIAXONE 1 G PREMIX 50 ML IV SCH (16:40)
[2019-03-10] MEDS: METHYLPREDNISOLONE SOD SUCC 40 MG/ML VIAL IV SCH (16:40)
[2019-03-10] MEDS: DIPHENHYDRAMINE 50MG/ML VIAL IV PRN (17:23)
[2019-03-10 20:00] VITALS: BP 110/61
[2019-03-11] VITALS: BP 109/68
[2019-03-11] MEDS: MORPHINE SULFATE 2 MG/ML CPJ (NOT FOR IM USE) IV PRN ×2 (00:32→06:18)
[2019-03-11] MEDS: ACETYLCYSTEINE 100MG/ML 10% VIAL 4ML INH SCH ×3 (01:00→16:55)
[2019-03-11] MEDS: IPRATROPIUM/ALBUTEROL 0.5-3(2.5)MG/3ML NEB HHN SCH ×6 (01:01→21:29)
[2019-03-11 04:00] VITALS: BP 113/71
[2019-03-11] MEDS: METHYLPREDNISOLONE SOD SUCC 40 MG/ML VIAL IV SCH ×2 (09:21→16:51)
[2019-03-11] MEDS: FUROSEMIDE 40MG/4ML VIAL IVP SCH (09:21)
[2019-03-11] MEDS: AZITHROMYCIN 500 MG TABLET PO SCH (09:22)
[2019-03-11] MEDS: ENOXAPARIN 40MG/0.4ML SYR SUBCUT SCH (09:22)
[2019-03-11] MEDS: ASPIRIN 81MG EC TABLET PO SCH (09:22)
[2019-03-11] MEDS: METHADONE HCL 10MG TABLET PO SCH (09:22)
[2019-03-11] MEDS: DOCUSATE SODIUM 100MG CAPSULE PO PRN ×2 (09:34→20:11)
[2019-03-11 12:00] VITALS: BP 111/64
[2019-03-11 16:00] VITALS: BP 119/79
[2019-03-11] MEDS: CEFTRIAXONE 1 G PREMIX 50 ML IV SCH (16:51)
[2019-03-11] MEDS: DIPHENHYDRAMINE 50MG/ML VIAL IV PRN (16:51)
[2019-03-11 20:00] VITALS: BP 108/66
[2019-03-11] MEDS: HYDROCODONE/ACETAMINOPHEN 5/325MG TABLET PO PRN (20:12)
[2019-03-12] VITALS: BP 132/70
[2019-03-12] MEDS: ACETYLCYSTEINE 100MG/ML 10% VIAL 4ML INH SCH ×2 (01:06→16:42)
[2019-03-12] MEDS: IPRATROPIUM/ALBUTEROL 0.5-3(2.5)MG/3ML NEB HHN SCH ×6 (01:06→21:01)
[2019-03-12 04:00] VITALS: BP 120/65
[2019-03-12 08:00] VITALS: BP 122/64
[2019-03-12] MEDS: FUROSEMIDE 40MG/4ML VIAL IVP SCH (08:33)
[2019-03-12] MEDS: METHYLPREDNISOLONE SOD SUCC 40 MG/ML VIAL IV SCH ×2 (08:34→17:32)
[2019-03-12] MEDS: ENOXAPARIN 40MG/0.4ML SYR SUBCUT SCH (08:34)
[2019-03-12] MEDS: ASPIRIN 81MG EC TABLET PO SCH (08:37)
[2019-03-12] MEDS: AZITHROMYCIN 500 MG TABLET PO SCH (08:37)
[2019-03-12] MEDS: METHADONE HCL 10MG TABLET PO SCH (08:37)
[2019-03-12] MEDS: MAGNESIUM/ALUMINUM HYDROXIDE/SIMETHICONE 30ML UDC PO PRN ×2 (08:47→17:32)
[2019-03-12] MEDS ORDERED: LACTULOSE 20G/30ML UDC PO SCH (10:30)
[2019-03-12 12:00] VITALS: BP 121/65
[2019-03-12 16:00] VITALS: BP 115/70
[2019-03-12] MEDS: CEFTRIAXONE 1 G PREMIX 50 ML IV SCH (17:32)
[2019-03-12 20:00] VITALS: BP 126/76
[2019-03-13] VITALS (7 sets, daily range): BP systolic 95–128; BP diastolic 48–67
[2019-03-13] MEDS: ACETYLCYSTEINE 100MG/ML 10% VIAL 4ML INH SCH ×3 (00:36→15:40)
[2019-03-13] MEDS: IPRATROPIUM/ALBUTEROL 0.5-3(2.5)MG/3ML NEB HHN SCH ×6 (00:36→21:40)
[2019-03-13] MEDS: METHYLPREDNISOLONE SOD SUCC 40 MG/ML VIAL IV SCH ×2 (09:19→19:16)
[2019-03-13] MEDS: FUROSEMIDE 40MG/4ML VIAL IVP SCH (09:19)
[2019-03-13] MEDS: ASPIRIN 81MG EC TABLET PO SCH (09:20)
[2019-03-13] MEDS: ENOXAPARIN 40MG/0.4ML SYR SUBCUT SCH (09:20)
[2019-03-13] MEDS: AZITHROMYCIN 500 MG TABLET PO SCH (09:20)
[2019-03-13 16:02] LABS: CHLORIDE 97 mEq/L (98-107)
[2019-03-13 16:11] LABS: HEMATOCRIT. 27.7 % (36.0-48.0); HEMOGLOBIN. 9.6 g/dL (12.0-16.0); MEAN CORPUSCULAR VOLUME 104.1 fL (81.0-99.0); MEAN PLATELET VOLUME 8.3 fl (7.4-10.4); PLATELET 410 x1000/uL (130-400); RED BLOOD CELL COUNT 2.66 mill/uL (4.2-5.4); RED CELL DISTRIBUTION WIDTH 20.5 % (11.6-14.6)
[2019-03-13] MEDS ORDERED: CEFEPIME 1,000 MG in DEXTROSE 5% WATER 50 ML IV SCH (16:30)
[2019-03-13 16:39] LABS: PLATELET ESTIMATE INCREASED
[2019-03-13] MEDS: METHADONE HCL 10MG TABLET PO SCH (19:17)
[2019-03-13] MEDS: DIPHENHYDRAMINE 50MG/ML VIAL IV PRN (22:53)
[2019-03-14] VITALS: BP 104/51
[2019-03-14] MEDS: IPRATROPIUM/ALBUTEROL 0.5-3(2.5)MG/3ML NEB HHN SCH ×4 (01:59→12:36)
[2019-03-14] MEDS: ACETYLCYSTEINE 100MG/ML 10% VIAL 4ML INH SCH ×2 (01:59→08:32)
[2019-03-14 04:00] VITALS: BP 101/57
[2019-03-14 08:00] VITALS: BP 114/43
[2019-03-14] MEDS: METHYLPREDNISOLONE SOD SUCC 40 MG/ML VIAL IV SCH (08:54)
[2019-03-14] MEDS: FUROSEMIDE 40MG/4ML VIAL IVP SCH ×2 (08:54→09:02)
[2019-03-14] MEDS: ASPIRIN 81MG EC TABLET PO SCH (08:55)
[2019-03-14] MEDS: ENOXAPARIN 40MG/0.4ML SYR SUBCUT SCH ×2 (09:00→09:28)
[2019-03-14] MEDS: METHADONE HCL 10MG TABLET PO SCH (09:03)
[2019-03-14 12:00] VITALS: BP 101/53
[2019-03-14 13:52] VITALS: BP 101/53
[2019-03-14] MEDS ORDERED: CEFEPIME 1,000 MG in DEXTROSE 5% WATER 50 ML IV SCH (16:30)
== END 2019-03-14 16:06 | disposition home or self-care (01) | DRG 720 ==
LOC: ER 16:59 → 5WST 20:41 → EDBEDREQ 20:49 → EDBEDREQSVC 20:49 → EDBEDREQTM 20:49 → ENRESERV 22:04 → 7WST 03-08 20:39
PROVIDERS: ADMIT Internal Medicine; ATTEND Internal Medicine
DX: A41.9 Sepsis, unspecified organism (principal); J96.00 Acute respiratory failure, unspecified whether with hypoxia or hypercapnia; I11.0 Hypertensive heart disease with heart failure; J18.1 Lobar pneumonia, unspecified organism; C95.90 Leukemia, unspecified not having achieved remission; I50.9 Heart failure, unspecified; J44.0 Chronic obstructive pulmonary disease with (acute) lower respiratory infection; B19.20 Unspecified viral hepatitis C without hepatic coma; E11.9 Type 2 diabetes mellitus without complications; F11.20 Opioid dependence, uncomplicated; F14.10 Cocaine abuse, uncomplicated; Z60.2 Problems related to living alone; Z86.73 Personal history of transient ischemic attack (TIA), and cerebral infarction without residual deficits; Z90.3 Acquired absence of stomach [part of]; Z88.8 Allergy status to other drugs, medicaments and biological substances; Z79.899 Other long term (current) drug therapy; Z91.19 Patient's noncompliance with other medical treatment and regimen; Z68.21 Body mass index [BMI] 21.0-21.9, adult
CPT/HCPCS: 36415; 71045; 71250; 80048; 80061; 80305; 82550; 82553; 83036; 83605; 83880; 84145; 84439; 84443; 84484; 85379; 87070; 90732; 93005; 93306; 93970; 94640; 94667; 96375; 97161; 99291; C1893; J0456; J0692; J0696; J1200; J1650; J1940; J1956; J2270; J2405; J2543; J2920; J2930; J3370; J7030; J7050; J7060; J7608; J7611; J7620; J7626; Q0163

== ENCOUNTER 2019-06-08 06:55 | Inpatient (IN) | payer MEDICAID ==
[~2019-06-08] VITALS: Ht 157.5 cm; Wt 50.8 kg
[2019-06-08 08:55] LABS: HEMATOCRIT. 31.8 % (36.0-48.0); HEMOGLOBIN. 10.8 g/dL (12.0-16.0); MEAN CORPUSCULAR HEMOGLOBIN 33.1 pg (28.0-32.0); MEAN CORPUSCULAR VOLUME 97.3 fL (81.0-99.0); MEAN PLATELET VOLUME 8.6 fl (7.4-10.4); PLATELET 263 x1000/uL (130-400); RED BLOOD CELL COUNT 3.27 mill/uL (4.2-5.4); RED CELL DISTRIBUTION WIDTH 20.2 % (11.6-14.6)
[2019-06-08 09:02] LABS: CHLORIDE 111 mEq/L (98-107)
[2019-06-08] MEDS ORDERED: ALBUTEROL (0.083%) 2.5MG/3ML NEB HHN STA (09:44)
[2019-06-08] MEDS ORDERED: METHYLPREDNISOLONE SOD SUCC 125 MG/2 ML VIAL IV STA (09:44)
[2019-06-08 10:23] LABS: CLARITY URINE CLEAR (CLEAR); COLOR URINE YELLOW (YELLOW); KETONES URINE NEGATIVE (NEGATIVE); LEUKOCYTE ESTERASE URINE TRACE (NEGATIVE); NITRITE URINE NEGATIVE (NEGATIVE); OCCULT BLOOD URINE NEGATIVE (NEGATIVE); PH URINE 6.5 (4.5-8.0); PROTEIN URINE NEGATIVE (NEGATIVE); SPECIFIC GRAVITY URINE 1.008 (1.005-1.030)
[2019-06-08 10:23] LABS: NUCLEATED RED BLOOD CELLS 2 /100 WBC
[2019-06-08 10:24] LABS: PLATELET ESTIMATE NORMAL
[2019-06-08] MEDS ORDERED: CEFTRIAXONE 1 G PREMIX 50 ML IV ONE (10:45)
[2019-06-08] MEDS ORDERED: ONDANSETRON HCL 4MG/2ML INJ IV PRN (12:15)
[2019-06-08] MEDS: ACETAMINOPHEN 325MG TABLET PO PRN (13:36)
[2019-06-08 17:00] VITALS: BP 128/65
[2019-06-08] MEDS ORDERED: METHADONE HCL 10MG TABLET PO NR (18:30)
[2019-06-08 20:00] VITALS: BP 130/65
[2019-06-08] MEDS: QUETIAPINE FUMARATE 25MG TABLET PO SCH (21:00)
[2019-06-08] MEDS: AMLODIPINE 5MG TABLET PO SCH (21:30)
[2019-06-08] MEDS ORDERED: ENOXAPARIN 40MG/0.4ML SYR SUBCUT SCH (23:30)
[2019-06-09] VITALS: BP 109/61
[2019-06-09] MEDS: IPRATROPIUM/ALBUTEROL 0.5-3(2.5)MG/3ML NEB HHN PRN ×2 (00:23→08:53)
[2019-06-09] MEDS: BUDESONIDE 0.5MG/2ML NEB HHN SCH ×2 (00:23→08:53)
[2019-06-09 03:57] LABS: *AMPHETAMINES SCREEN URINE NEGATIVE (NEGATIVE); *BARBITURATES SCREEN URINE NEGATIVE (NEGATIVE); *BENZODIAZEPINES SCREEN URINE NEGATIVE (NEGATIVE)
[2019-06-09 03:58] LABS: *COCAINE SCREEN URINE PRESUMTIVE POSITIVE (NEGATIVE); CANNABINOID URINE SCREEN NEGATIVE (NEGATIVE); OPIATES URINE SCREEN NEGATIVE (NEGATIVE); PHENCYCLIDINE URINE SCREEN NEGATIVE (NEGATIVE)
[2019-06-09 03:59] LABS: METHADONE URINE SCREEN PRESUMTIVE POSITIVE (NEGATIVE)
[2019-06-09 04:00] VITALS: BP 107/63
[2019-06-09] MEDS: ACETAMINOPHEN 325MG TABLET PO PRN (06:55)
[2019-06-09 08:00] VITALS: BP 116/58
[2019-06-09] MEDS: AMLODIPINE 5MG TABLET PO SCH (08:41)
[2019-06-09] MEDS: QUETIAPINE FUMARATE 25MG TABLET PO SCH (08:41)
[2019-06-09] MEDS ORDERED: THIAMINE HCL 100MG TABLET PO SCH (09:00)
[2019-06-09] MEDS ORDERED: METHADONE HCL 10MG TABLET PO SCH (09:00)
[2019-06-09] MEDS ORDERED: FERROUS SULFATE 325MG TABLET PO SCH (09:00)
[2019-06-09] MEDS ORDERED: FUROSEMIDE 20MG TABLET PO SCH (09:00)
[2019-06-09 09:03] LABS: HEMATOCRIT. 29.5 % (36.0-48.0); HEMOGLOBIN. 10.1 g/dL (12.0-16.0); MEAN CORPUSCULAR HEMOGLOBIN 33.7 pg (28.0-32.0); MEAN CORPUSCULAR VOLUME 98.5 fL (81.0-99.0); MEAN PLATELET VOLUME 8.5 fl (7.4-10.4); PLATELET 248 x1000/uL (130-400); RED BLOOD CELL COUNT 2.99 mill/uL (4.2-5.4); RED CELL DISTRIBUTION WIDTH 20.1 % (11.6-14.6)
[2019-06-09 09:15] LABS: CHLORIDE 111 mEq/L (98-107)
[2019-06-09 12:00] VITALS: BP 96/51
[2019-06-09 14:13] LABS: PLATELET ESTIMATE NORMAL
[2019-06-09 16:00] VITALS: BP 92/50
[2019-06-09 20:07] VITALS: BP 110/54
== END 2019-06-09 20:42 | disposition home or self-care (01) | DRG 194 ==
LOC: ER 06:55 → 5WST 10:37 → EDBEDREQ 10:40
PROVIDERS: ADMIT Internal Medicine; ATTEND Internal Medicine
DX: I11.0 Hypertensive heart disease with heart failure (principal); E87.8 Other disorders of electrolyte and fluid balance, not elsewhere classified; J44.9 Chronic obstructive pulmonary disease, unspecified; D64.9 Anemia, unspecified; I50.33 Acute on chronic diastolic (congestive) heart failure; F11.20 Opioid dependence, uncomplicated; D72.825 Bandemia; F17.210 Nicotine dependence, cigarettes, uncomplicated; M54.9 Dorsalgia, unspecified; Z85.6 Personal history of leukemia; Z71.6 Tobacco abuse counseling; Z88.8 Allergy status to other drugs, medicaments and biological substances; Z79.899 Other long term (current) drug therapy
CPT/HCPCS: 36415; 71045; 80048; 80305; 81003; 82962; 83880; 84484; 93005; 94640; 96365; 97162; 99285; J0696; J1650; J2930; J7611; J7620; J7626

== ENCOUNTER 2019-08-11 10:26 | Inpatient (IN) | payer MEDICAID ==
[~2019-08-11] VITALS: Ht 160 cm; Wt 51.3 kg
[2019-08-11] MEDS ORDERED: IPRATROPIUM BROMIDE (0.02%) 0.5MG/2.5ML NEB HHN STA (10:48)
[2019-08-11] MEDS ORDERED: SODIUM CHLORIDE 0.9% 500 ML IV ONE (10:48)
[2019-08-11] MEDS ORDERED: ALBUTEROL (0.083%) 2.5MG/3ML NEB HHN STA (10:48)
[2019-08-11] MEDS ORDERED: METHYLPREDNISOLONE SOD SUCC 125 MG/2 ML VIAL IV STA (10:48)
[2019-08-11 12:37] LABS: CHLORIDE 103 mEq/L (98-107)
[2019-08-11] MEDS ORDERED: AZITHROMYCIN 500 MG in DEXT 5% WATER 250 ML IV SCH (12:45)
[2019-08-11] MEDS ORDERED: CEFTRIAXONE 1 G PREMIX 50 ML IV ONE (12:45)
[2019-08-11 13:23] LABS: CLARITY URINE TURBID (CLEAR); COLOR URINE YELLOW (YELLOW); KETONES URINE NEGATIVE (NEGATIVE); LEUKOCYTE ESTERASE URINE 1+ (NEGATIVE); NITRITE URINE NEGATIVE (NEGATIVE); OCCULT BLOOD URINE NEGATIVE (NEGATIVE); PH URINE 5.5 (4.5-8.0); PROTEIN URINE 1+ (NEGATIVE); SPECIFIC GRAVITY URINE 1.012 (1.005-1.030)
[2019-08-11 14:40] LABS: HEMATOCRIT. 29.7 % (36.0-48.0); HEMOGLOBIN. 9.8 g/dL (12.0-16.0); MEAN CORPUSCULAR HEMOGLOBIN 31.4 pg (28.0-32.0); MEAN CORPUSCULAR VOLUME 94.9 fL (81.0-99.0); MEAN PLATELET VOLUME 8.5 fl (7.4-10.4); PLATELET 87 x1000/uL (130-400); RED BLOOD CELL COUNT 3.13 mill/uL (4.2-5.4); RED CELL DISTRIBUTION WIDTH 18.8 % (11.6-14.6)
[2019-08-11 14:42] LABS: INR 1.2
[2019-08-11] MEDS ORDERED: PIPERACILLIN/TAZOBACTAM 3.375 G in DEXT 5% WATER 100 ML IV SCH (15:00)
[2019-08-11] MEDS ORDERED: IPRATROPIUM/ALBUTEROL 0.5-3(2.5)MG/3ML NEB HHN PRN (16:30)
[2019-08-11 16:56] LABS: NUCLEATED RED BLOOD CELLS 4 /100 WBC
[2019-08-11 16:57] LABS: PLATELET ESTIMATE DECREASED
[2019-08-11 18:57] VITALS: BP 121/75
[2019-08-11] MEDS ORDERED: MET5 MT (18:57)
[2019-08-11 20:00] VITALS: BP 121/65
[2019-08-11] MEDS: SODIUM CHLORIDE 0.9% 1,000 ML IV SCH (20:36)
[2019-08-11] MEDS: METHYLPREDNISOLONE SOD SUCC 40 MG/ML VIAL IV SCH (20:37)
[2019-08-11] MEDS: CEFEPIME 1,000 MG in DEXTROSE 5% WATER 50 ML IV SCH (22:00)
[2019-08-11] MEDS: GUAIFENESIN 600MG ER TABLET PO SCH (22:02)
[2019-08-12] VITALS (7 sets, daily range): BP systolic 124–148; BP diastolic 63–88
[2019-08-12] MEDS: IPRATROPIUM/ALBUTEROL 0.5-3(2.5)MG/3ML NEB HHN SCH ×6 (01:26→21:50)
[2019-08-12] MEDS: METHYLPREDNISOLONE SOD SUCC 40 MG/ML VIAL IV SCH ×3 (04:29→18:35)
[2019-08-12 07:27] LABS: HEMOGLOBIN. 9.4 g/dL (12.0-16.0); MEAN CORPUSCULAR HEMOGLOBIN 31.9 pg (28.0-32.0); MEAN CORPUSCULAR VOLUME 94.6 fL (81.0-99.0); PLATELET 82 x1000/uL (130-400); RED BLOOD CELL COUNT 2.96 mill/uL (4.2-5.4); RED CELL DISTRIBUTION WIDTH 18.7 % (11.6-14.6)
[2019-08-12] MEDS: CEFEPIME 1,000 MG in DEXTROSE 5% WATER 50 ML IV SCH (08:42)
[2019-08-12] MEDS: GUAIFENESIN 600MG ER TABLET PO SCH ×2 (08:43→22:52)
[2019-08-12] MEDS ORDERED: INFLUENZA VIRUS VACCINE(AFLURIA) 0.5ML SYR IM ONE (12:00)
[2019-08-12] MEDS: SODIUM CHLORIDE 0.9% 1,000 ML IV SCH ×2 (12:09→22:52)
[2019-08-12] MEDS ORDERED: MORPHINE SULFATE 2 MG/ML CPJ (NOT FOR IM USE) IV PRN (13:00)
[2019-08-12 14:26] LABS: NUCLEATED RED BLOOD CELLS 3 /100 WBC
[2019-08-12 14:28] LABS: PLATELET ESTIMATE DECREASED
[2019-08-12] MEDS ORDERED: METHADONE HCL 10MG TABLET PO NR (15:30)
[2019-08-12] MEDS: MEROPENEM 500 MG in SODIUM CHLORIDE 0.9% 50 ML IV SCH (18:35)
[2019-08-12] MEDS ORDERED: VANCOMYCIN 1250MG in DEXTROSE 5% WATER 250ML IV NR (20:00)
[2019-08-12] MEDS ORDERED: ACETYLCYSTEINE 100MG/ML 10% VIAL 4ML INH SCH (22:00)
[2019-08-12] MEDS: DIPHENHYDRAMINE 25MG CAPSULE PO PRN (22:51)
[2019-08-13] VITALS (7 sets, daily range): BP systolic 136–145; BP diastolic 73–87
[2019-08-13] MEDS: METHYLPREDNISOLONE SOD SUCC 40 MG/ML VIAL IV SCH ×3 (01:08→16:48)
[2019-08-13] MEDS: MEROPENEM 500 MG in SODIUM CHLORIDE 0.9% 50 ML IV SCH ×3 (01:08→18:17)
[2019-08-13] MEDS: ACETYLCYSTEINE 200MG/ML 20% VIAL 4ML INH SCH ×2 (01:28→17:12)
[2019-08-13] MEDS: IPRATROPIUM/ALBUTEROL 0.5-3(2.5)MG/3ML NEB HHN SCH ×6 (01:28→19:52)
[2019-08-13 07:37] LABS: HEMATOCRIT. 28.1 % (36.0-48.0); HEMOGLOBIN. 9.1 g/dL (12.0-16.0); MEAN CORPUSCULAR HEMOGLOBIN 30.6 pg (28.0-32.0); MEAN CORPUSCULAR VOLUME 94.2 fL (81.0-99.0); MEAN PLATELET VOLUME 8.5 fl (7.4-10.4); PLATELET 106 x1000/uL (130-400); RED BLOOD CELL COUNT 2.98 mill/uL (4.2-5.4); RED CELL DISTRIBUTION WIDTH 19.4 % (11.6-14.6)
[2019-08-13] MEDS: GUAIFENESIN 600MG ER TABLET PO SCH ×2 (08:56→21:34)
[2019-08-13] MEDS: METHADONE HCL 10MG TABLET PO SCH (09:47)
[2019-08-13] MEDS: SODIUM CHLORIDE 0.9% 1,000 ML IV SCH (10:31)
[2019-08-13 10:36] LABS: NUCLEATED RED BLOOD CELLS 5 /100 WBC; PLATELET ESTIMATE SLIGHTLY DECREASED
[2019-08-13 12:37] LABS: *BENZODIAZEPINES SCREEN URINE NEGATIVE (NEGATIVE); *COCAINE SCREEN URINE PRESUMTIVE POSITIVE (NEGATIVE); OPIATES URINE SCREEN PRESUMTIVE POSITIVE (NEGATIVE)
[2019-08-13 12:38] LABS: *AMPHETAMINES SCREEN URINE NEGATIVE (NEGATIVE); *BARBITURATES SCREEN URINE NEGATIVE (NEGATIVE); CANNABINOID URINE SCREEN NEGATIVE (NEGATIVE); METHADONE URINE SCREEN PRESUMTIVE POSITIVE (NEGATIVE); PHENCYCLIDINE URINE SCREEN NEGATIVE (NEGATIVE)
[2019-08-13] MEDS ORDERED: VANCOMYCIN 1 G PREMIX 200 ML IV SCH (13:00)
[2019-08-13] MEDS: FAMOTIDINE 20MG TABLET PO SCH (14:55)
[2019-08-13] MEDS: DIPHENHYDRAMINE 25MG CAPSULE PO PRN ×2 (15:16→15:17)
[2019-08-13] MEDS: VANCOMYCIN 1 G PREMIX 200 ML IV SCH (16:44)
[2019-08-13] MEDS: HYDROXYUREA 500MG CAPSULE PO SCH (17:41)
[2019-08-14] VITALS: BP 130/76
[2019-08-14] MEDS: ACETYLCYSTEINE 200MG/ML 20% VIAL 4ML INH SCH ×3 (00:16→15:37)
[2019-08-14] MEDS: IPRATROPIUM/ALBUTEROL 0.5-3(2.5)MG/3ML NEB HHN SCH ×6 (00:17→21:30)
[2019-08-14] MEDS: SODIUM CHLORIDE 0.9% 1,000 ML IV SCH ×2 (02:24→15:40)
[2019-08-14] MEDS: MEROPENEM 500 MG in SODIUM CHLORIDE 0.9% 50 ML IV SCH ×3 (02:24→18:24)
[2019-08-14] MEDS: METHYLPREDNISOLONE SOD SUCC 40 MG/ML VIAL IV SCH ×3 (02:24→18:23)
[2019-08-14 04:00] VITALS: BP 150/76
[2019-08-14] MEDS: HYDROCODONE/ACETAMINOPHEN 10/325MG TABLET PO PRN (04:20)
[2019-08-14 07:57] LABS: HEMATOCRIT. 27.8 % (36.0-48.0); HEMOGLOBIN. 9.2 g/dL (12.0-16.0); MEAN CORPUSCULAR HEMOGLOBIN 31.1 pg (28.0-32.0); MEAN CORPUSCULAR VOLUME 94.2 fL (81.0-99.0); MEAN PLATELET VOLUME 9.3 fl (7.4-10.4); PLATELET 74 x1000/uL (130-400); RED BLOOD CELL COUNT 2.95 mill/uL (4.2-5.4); RED CELL DISTRIBUTION WIDTH 18.9 % (11.6-14.6)
[2019-08-14 08:00] VITALS: BP 154/84
[2019-08-14] MEDS: FAMOTIDINE 20MG TABLET PO SCH (08:06)
[2019-08-14] MEDS: METHADONE HCL 10MG TABLET PO SCH (08:06)
[2019-08-14] MEDS: GUAIFENESIN 600MG ER TABLET PO SCH ×2 (09:04→22:07)
[2019-08-14] MEDS: DIPHENHYDRAMINE 25MG CAPSULE PO PRN (11:20)
[2019-08-14] MEDS: VANCOMYCIN 1 G PREMIX 200 ML IV SCH (11:20)
[2019-08-14 12:00] VITALS: BP 124/88
[2019-08-14 16:00] VITALS: BP 132/82
[2019-08-14] MEDS: HYDROXYUREA 500MG CAPSULE PO SCH (18:00)
[2019-08-14 20:00] VITALS: BP 126/69
[2019-08-14 20:04] LABS: NUCLEATED RED BLOOD CELLS 2 /100 WBC; PLATELET ESTIMATE DECREASED
[2019-08-15] VITALS (7 sets, daily range): BP systolic 102–154; BP diastolic 60–82
[2019-08-15] MEDS: IPRATROPIUM/ALBUTEROL 0.5-3(2.5)MG/3ML NEB HHN SCH ×6 (01:21→20:48)
[2019-08-15] MEDS: ACETYLCYSTEINE 200MG/ML 20% VIAL 4ML INH SCH ×2 (01:22→09:34)
[2019-08-15] MEDS: MEROPENEM 500 MG in SODIUM CHLORIDE 0.9% 50 ML IV SCH ×3 (02:00→18:24)
[2019-08-15] MEDS: SODIUM CHLORIDE 0.9% 1,000 ML IV SCH ×2 (03:00→18:24)
[2019-08-15] MEDS: METHYLPREDNISOLONE SOD SUCC 40 MG/ML VIAL IV SCH ×3 (07:01→18:24)
[2019-08-15] MEDS: VANCOMYCIN 1 G PREMIX 200 ML IV SCH (08:56)
[2019-08-15] MEDS: METHADONE HCL 10MG TABLET PO SCH (08:56)
[2019-08-15] MEDS: ALLOPURINOL 300 MG TABLET PO SCH (08:59)
[2019-08-15] MEDS: FAMOTIDINE 20MG TABLET PO SCH (09:02)
[2019-08-15] MEDS: DIPHENHYDRAMINE 25MG CAPSULE PO PRN ×2 (12:12→20:29)
[2019-08-15] MEDS: GUAIFENESIN 600MG ER TABLET PO SCH ×2 (12:21→20:29)
[2019-08-15] MEDS: HYDROXYUREA 500MG CAPSULE PO SCH ×2 (18:25→18:28)
[2019-08-15] MEDS: HYDROCODONE/ACETAMINOPHEN 10/325MG TABLET PO PRN (20:54)
[2019-08-16] VITALS: BP 120/65
[2019-08-16] MEDS: IPRATROPIUM/ALBUTEROL 0.5-3(2.5)MG/3ML NEB HHN SCH ×5 (00:53→15:54)
[2019-08-16] MEDS: ACETYLCYSTEINE 200MG/ML 20% VIAL 4ML INH SCH ×3 (00:54→15:54)
[2019-08-16] MEDS: METHYLPREDNISOLONE SOD SUCC 40 MG/ML VIAL IV SCH ×2 (01:13→08:30)
[2019-08-16] MEDS: MEROPENEM 500 MG in SODIUM CHLORIDE 0.9% 50 ML IV SCH ×2 (01:19→11:05)
[2019-08-16] MEDS: VANCOMYCIN 1 G PREMIX 200 ML IV SCH (03:01)
[2019-08-16 04:00] VITALS: BP 146/82
[2019-08-16] MEDS ORDERED: MAGNESIUM/ALUMINUM HYDROXIDE/SIMETHICONE 30ML UDC PO PRN (05:15)
[2019-08-16 08:00] VITALS: BP 157/85
[2019-08-16 08:18] LABS: HEMOGLOBIN. 9.1 g/dL (12.0-16.0); MEAN CORPUSCULAR HEMOGLOBIN 31.6 pg (28.0-32.0); MEAN CORPUSCULAR VOLUME 93.4 fL (81.0-99.0); MEAN PLATELET VOLUME 8.9 fl (7.4-10.4); RED BLOOD CELL COUNT 2.89 mill/uL (4.2-5.4); RED CELL DISTRIBUTION WIDTH 18.7 % (11.6-14.6)
[2019-08-16] MEDS: ALLOPURINOL 300 MG TABLET PO SCH (08:30)
[2019-08-16] MEDS: METHADONE HCL 10MG TABLET PO SCH (08:30)
[2019-08-16] MEDS: FAMOTIDINE 20MG TABLET PO SCH (08:30)
[2019-08-16] MEDS: GUAIFENESIN 600MG ER TABLET PO SCH (08:30)
[2019-08-16 08:37] LABS: PLATELET 43 x1000/uL (130-400)
[2019-08-16] MEDS ORDERED: FUROSEMIDE 20MG TABLET PO SCH (11:15)
[2019-08-16 11:33] LABS: ATYPICAL LYMPHOCYTES 1; NUCLEATED RED BLOOD CELLS 3 /100 WBC
[2019-08-16 11:35] LABS: PLATELET ESTIMATE MARKEDLY DECREASED
[2019-08-16 12:00] VITALS: BP 147/86
[2019-08-16] MEDS ORDERED: P20 MT (16:41)
[2019-08-16] MEDS ORDERED: ALLO300T2 PO (16:41)
[2019-08-16] MEDS ORDERED: HYDR500C PO (16:41)
[2019-08-16] MEDS ORDERED: FAMO20TA8 PO (16:41)
[2019-08-16] MEDS ORDERED: AMOX-424 MT (16:43)
[2019-08-16 16:59] VITALS: BP 141/66
== END 2019-08-16 20:00 | disposition home or self-care (01) | DRG 720 ==
LOC: ER 11:02 → 7WST 13:53 → EDBEDREQ 13:56 → ENRESERV 14:49 → CANBEDREQ 08-12 02:38
PROVIDERS: ADMIT Internal Medicine; ATTEND Internal Medicine
DX: A41.9 Sepsis, unspecified organism (principal); N17.0 Acute kidney failure with tubular necrosis; J96.00 Acute respiratory failure, unspecified whether with hypoxia or hypercapnia; E11.22 Type 2 diabetes mellitus with diabetic chronic kidney disease; J18.1 Lobar pneumonia, unspecified organism; F11.20 Opioid dependence, uncomplicated; C94.6 Myelodysplastic disease, not elsewhere classified; I50.32 Chronic diastolic (congestive) heart failure; J68.0 Bronchitis and pneumonitis due to chemicals, gases, fumes and vapors; E87.1 Hypo-osmolality and hyponatremia; E87.5 Hyperkalemia; N18.9 Chronic kidney disease, unspecified; N39.0 Urinary tract infection, site not specified; B19.20 Unspecified viral hepatitis C without hepatic coma; D64.9 Anemia, unspecified; F14.90 Cocaine use, unspecified, uncomplicated; Z86.73 Personal history of transient ischemic attack (TIA), and cerebral infarction without residual deficits; Z90.3 Acquired absence of stomach [part of]; Z87.11 Personal history of peptic ulcer disease; C95.91 Leukemia, unspecified, in remission; F17.210 Nicotine dependence, cigarettes, uncomplicated; T40.5X1A Poisoning by cocaine, accidental (unintentional), initial encounter; Y92.89 Other specified places as the place of occurrence of the external cause
CPT/HCPCS: 36415; 71045; 80048; 80202; 80305; 81003; 83605; 83615; 83880; 84132; 84484; 84550; 93005; 93970; 94640; 94667; 96361; 96374; 96375; 97161; 99285; J0456; J0692; J0696; J2185; J2270; J2920; J2930; J3370; J7030; J7060; J7608; J7611; J7620; Q0163

== ENCOUNTER 2019-10-03 00:24 | Inpatient (IN) | payer MEDICAID ==
[~2019-10-03] VITALS: Ht 152.4 cm; Wt 61.8 kg
[2019-10-03] VITALS (16 sets, daily range): BP systolic 95–113; BP diastolic 52–70
[~2019-10-03 00:24] MED LIST changes: +ALLO300T2 PO; +AMOX-424 MT; +FAMO20TA8 PO; +HYDR500C PO; +MET5 MT; +P20 MT
[2019-10-03] MEDS ORDERED: ONDANSETRON HCL 4MG/2ML INJ IV STA (01:06)
[2019-10-03] MEDS ORDERED: MORPHINE SULFATE 4 MG/ML CPJ (NOT FOR IM USE) IV STA (01:06)
[2019-10-03] MEDS ORDERED: PIPERACILLIN/TAZ 3.375G PREMIX 50 ML IV ONE (01:15)
[2019-10-03] MEDS ORDERED: SODIUM CHLORIDE 0.9% 1000ML BAG (SEPSIS BOLUS) IV ONE (01:15)
[2019-10-03] MEDS ORDERED: VANCOMYCIN 1 G PREMIX 200 ML IV ONE (01:15)
[2019-10-03 01:46] LABS: HEMATOCRIT. 22.5 % (36.0-48.0); HEMOGLOBIN. 7.5 g/dL (12.0-16.0); MEAN CORPUSCULAR HEMOGLOBIN 30.1 pg (28.0-32.0); MEAN PLATELET VOLUME 6.1 fl (7.4-10.4); RED BLOOD CELL COUNT 2.48 mill/uL (4.2-5.4); RED CELL DISTRIBUTION WIDTH 18.8 % (11.6-14.6)
[2019-10-03 01:49] LABS: CHLORIDE 109 mEq/L (98-107); INR 1.2; PROTHROMBIN TIME 11.9 sec (9.6-11.0)
[2019-10-03 01:52] LABS: PLATELET 19 x1000/uL (130-400)
[2019-10-03 02:18] LABS: NUCLEATED RED BLOOD CELLS 6 /100 WBC
[2019-10-03 02:21] LABS: PLATELET ESTIMATE MARKEDLY DECREASED
[2019-10-03 05:54] LABS: CLARITY URINE CLOUDY (CLEAR); COLOR URINE YELLOW (YELLOW); KETONES URINE NEGATIVE (NEGATIVE); LEUKOCYTE ESTERASE URINE NEGATIVE (NEGATIVE); NITRITE URINE NEGATIVE (NEGATIVE); OCCULT BLOOD URINE 1+ (NEGATIVE); PROTEIN URINE TRACE (NEGATIVE); SPECIFIC GRAVITY URINE 1.006 (1.005-1.030); UROBILINOGEN URINE 0.2 E.U./dL (0.2-1.0)
[2019-10-03] MEDS ORDERED: CLONIDINE 0.1MG TABLET PO PRN (08:30)
[2019-10-03] MEDS ORDERED: IPRATROPIUM/ALBUTEROL 0.5-3(2.5)MG/3ML NEB HHN PRN ×2 (08:30→15:00)
[2019-10-03] MEDS ORDERED: DIPHENHYDRAMINE 50MG/ML VIAL IV PRN (08:30)
[2019-10-03] MEDS ORDERED: ONDANSETRON HCL 4MG/2ML INJ IV PRN (08:30)
[2019-10-03] MEDS ORDERED: DOCUSATE SODIUM 100MG CAPSULE PO PRN (08:30)
[2019-10-03] MEDS ORDERED: GUAIFENESIN 200MG/10ML SUGAR FREE UDC PO PRN (08:30)
[2019-10-03 08:56] LABS: PHOSPHORUS 4.9 mg/dL (2.5-4.9)
[2019-10-03] MEDS: MORPHINE SULFATE 2 MG/ML CPJ (NOT FOR IM USE) IV PRN (10:07)
[2019-10-03] MEDS: OMEPRAZOLE 20MG CAPSULE EXTENDED RELEASE PO SCH ×2 (12:35→20:45)
[2019-10-03] MEDS: METHADONE HCL 10MG TABLET PO SCH (13:35)
[2019-10-03 16:58] LABS: *AMPHETAMINES SCREEN URINE NEGATIVE (NEGATIVE); *BARBITURATES SCREEN URINE NEGATIVE (NEGATIVE); *BENZODIAZEPINES SCREEN URINE NEGATIVE (NEGATIVE); *COCAINE SCREEN URINE NEGATIVE (NEGATIVE)
[2019-10-03 16:59] LABS: CANNABINOID URINE SCREEN NEGATIVE (NEGATIVE); OPIATES URINE SCREEN PRESUMTIVE POSITIVE (NEGATIVE); PHENCYCLIDINE URINE SCREEN NEGATIVE (NEGATIVE)
[2019-10-03 17:03] LABS: METHADONE URINE SCREEN PRESUMTIVE POSITIVE (NEGATIVE)
[2019-10-03] MEDS: IPRATROPIUM/ALBUTEROL 0.5-3(2.5)MG/3ML NEB HHN SCH (20:14)
[2019-10-03] MEDS: BUDESONIDE 0.5MG/2ML NEB HHN SCH (20:14)
[2019-10-03] MEDS: GUAIFENESIN 600MG ER TABLET PO SCH (20:45)
[2019-10-04] VITALS (22 sets, daily range): BP systolic 91–133; BP diastolic 53–87
[2019-10-04] MEDS: MORPHINE SULFATE 2 MG/ML CPJ (NOT FOR IM USE) IV PRN ×3 (01:35→18:03)
[2019-10-04] MEDS: IPRATROPIUM/ALBUTEROL 0.5-3(2.5)MG/3ML NEB HHN SCH ×4 (02:06→21:16)
[2019-10-04 07:21] LABS: MEAN CORPUSCULAR HEMOGLOBIN 29.8 pg (28.0-32.0); MEAN CORPUSCULAR VOLUME 90.3 fL (81.0-99.0); RED BLOOD CELL COUNT 2.15 mill/uL (4.2-5.4); RED CELL DISTRIBUTION WIDTH 18.4 % (11.6-14.6)
[2019-10-04 07:31] LABS: CHLORIDE 112 mEq/L (98-107)
[2019-10-04 07:47] LABS: HEMATOCRIT. 19.4 % (36.0-48.0); HEMOGLOBIN. 6.4 g/dL (12.0-16.0); PLATELET 49 x1000/uL (130-400)
[2019-10-04 07:50] LABS: LDL CHOLESTEROL 34 mg/dL (5-100)
[2019-10-04 07:56] LABS: HDL CHOLESTEROL 24 mg/dL (40-59)
[2019-10-04] MEDS: BUDESONIDE 0.5MG/2ML NEB HHN SCH ×2 (08:25→21:16)
[2019-10-04] MEDS: GUAIFENESIN 600MG ER TABLET PO SCH ×2 (09:13→21:28)
[2019-10-04] MEDS: OMEPRAZOLE 20MG CAPSULE EXTENDED RELEASE PO SCH ×2 (09:14→21:28)
[2019-10-04] MEDS: METHADONE HCL 10MG TABLET PO SCH (09:14)
[2019-10-04 10:10] LABS: NUCLEATED RED BLOOD CELLS 8 /100 WBC; PLATELET ESTIMATE MARKEDLY DECREASED
[2019-10-04 21:51] LABS: HEMATOCRIT 26.5 % (36.0-48.0); HEMOGLOBIN 8.9 g/dL (12.0-16.0)
[2019-10-05] VITALS (12 sets, daily range): BP systolic 113–136; BP diastolic 66–86
[2019-10-05] MEDS: IPRATROPIUM/ALBUTEROL 0.5-3(2.5)MG/3ML NEB HHN SCH ×4 (01:07→21:11)
[2019-10-05] MEDS: MORPHINE SULFATE 2 MG/ML CPJ (NOT FOR IM USE) IV PRN ×3 (01:24→20:25)
[2019-10-05 07:55] LABS: HEMATOCRIT. 23.4 % (36.0-48.0); HEMOGLOBIN. 7.8 g/dL (12.0-16.0); MEAN CORPUSCULAR HEMOGLOBIN 29.5 pg (28.0-32.0); MEAN CORPUSCULAR VOLUME 89.1 fL (81.0-99.0); MEAN PLATELET VOLUME 7.7 fl (7.4-10.4); RED BLOOD CELL COUNT 2.62 mill/uL (4.2-5.4)
[2019-10-05] MEDS: GUAIFENESIN 600MG ER TABLET PO SCH ×2 (08:06→22:20)
[2019-10-05] MEDS: METHADONE HCL 10MG TABLET PO SCH (08:06)
[2019-10-05] MEDS: OMEPRAZOLE 20MG CAPSULE EXTENDED RELEASE PO SCH ×2 (08:06→22:20)
[2019-10-05 09:49] LABS: NUCLEATED RED BLOOD CELLS 17 /100 WBC; PLATELET ESTIMATE MARKEDLY DECREASED
[2019-10-05 09:50] LABS: PLATELET 38 x1000/uL (130-400)
[2019-10-05] MEDS: BUDESONIDE 0.5MG/2ML NEB HHN SCH ×2 (10:51→21:11)
[2019-10-06] VITALS: BP 137/53
[2019-10-06] MEDS: IPRATROPIUM/ALBUTEROL 0.5-3(2.5)MG/3ML NEB HHN SCH ×4 (00:59→20:48)
[2019-10-06] MEDS: MORPHINE SULFATE 2 MG/ML CPJ (NOT FOR IM USE) IV PRN (01:17)
[2019-10-06 04:00] VITALS: BP 104/54
[2019-10-06] MEDS: OMEPRAZOLE 20MG CAPSULE EXTENDED RELEASE PO SCH ×2 (05:49→21:11)
[2019-10-06 06:03] LABS: HEMATOCRIT. 23.5 % (36.0-48.0); HEMOGLOBIN. 7.7 g/dL (12.0-16.0); MEAN CORPUSCULAR HEMOGLOBIN 29.3 pg (28.0-32.0); MEAN CORPUSCULAR VOLUME 89.5 fL (81.0-99.0); MEAN PLATELET VOLUME 9.2 fl (7.4-10.4); RED BLOOD CELL COUNT 2.63 mill/uL (4.2-5.4); RED CELL DISTRIBUTION WIDTH 17.2 % (11.6-14.6)
[2019-10-06 08:00] VITALS: BP 138/77
[2019-10-06] MEDS: BUDESONIDE 0.5MG/2ML NEB HHN SCH ×2 (08:17→20:49)
[2019-10-06] MEDS ORDERED: METHADONE HCL 10MG TABLET PO SCH ×2 (09:00→21:00)
[2019-10-06] MEDS: GUAIFENESIN 600MG ER TABLET PO SCH ×2 (09:08→21:11)
[2019-10-06] MEDS: METHADONE HCL 10MG TABLET PO SCH (09:09)
[2019-10-06 11:06] LABS: NUCLEATED RED BLOOD CELLS 20 /100 WBC
[2019-10-06 11:07] LABS: PLATELET ESTIMATE MARKEDLY DECREASED
[2019-10-06 11:08] LABS: PLATELET 21 x1000/uL (130-400)
[2019-10-06 12:00] VITALS: BP 130/74
[2019-10-06] MEDS ORDERED: PULM50 HHN (12:00)
[2019-10-06 16:00] VITALS: BP 118/67
[2019-10-06] MEDS: ACETAMINOPHEN 325MG TABLET PO PRN (16:24)
[2019-10-07] VITALS: BP 107/49
[2019-10-07] MEDS: IPRATROPIUM/ALBUTEROL 0.5-3(2.5)MG/3ML NEB HHN SCH ×3 (01:12→15:21)
[2019-10-07 04:33] VITALS: BP 118/70
[2019-10-07] MEDS: ACETAMINOPHEN 325MG TABLET PO PRN (05:17)
[2019-10-07] MEDS: OMEPRAZOLE 20MG CAPSULE EXTENDED RELEASE PO SCH (05:57)
[2019-10-07 08:00] VITALS: BP 102/57
[2019-10-07] MEDS: METHADONE HCL 10MG TABLET PO SCH (10:23)
[2019-10-07] MEDS: GUAIFENESIN 600MG ER TABLET PO SCH (10:23)
[2019-10-07 12:00] VITALS: BP 109/66
[2019-10-07 16:00] VITALS: BP 120/67
[2019-10-07 17:15] VITALS: BP 120/67
== END 2019-10-07 18:17 | disposition home health service (06) | DRG 133 ==
LOC: ER 00:34 → 5EST 03:51 → EDBEDREQ 04:28 → EDBEDREQTM 04:28 → ENRESERV 08:01 → 5WST 10-05 11:20
PROVIDERS: ADMIT Internal Medicine; ATTEND Internal Medicine
PROC: 30233R1 Transfusion of Nonautologous Platelets into Peripheral Vein, Percutaneous Approach (ICD-10-PCS; principal; 2019-10-03)
PROC: 30233N1 Transfusion of Nonautologous Red Blood Cells into Peripheral Vein, Percutaneous Approach (ICD-10-PCS; 2019-10-04)
DX: J96.00 Acute respiratory failure, unspecified whether with hypoxia or hypercapnia (principal); N17.9 Acute kidney failure, unspecified; R64 Cachexia; J84.9 Interstitial pulmonary disease, unspecified; C95.90 Leukemia, unspecified not having achieved remission; D69.59 Other secondary thrombocytopenia; F11.20 Opioid dependence, uncomplicated; E44.1 Mild protein-calorie malnutrition; J06.9 Acute upper respiratory infection, unspecified; E11.9 Type 2 diabetes mellitus without complications; D64.9 Anemia, unspecified; K59.00 Constipation, unspecified; F14.10 Cocaine abuse, uncomplicated; J44.9 Chronic obstructive pulmonary disease, unspecified; N39.0 Urinary tract infection, site not specified; R62.7 Adult failure to thrive; Z79.51 Long term (current) use of inhaled steroids; Z79.899 Other long term (current) drug therapy; Z86.73 Personal history of transient ischemic attack (TIA), and cerebral infarction without residual deficits; Z88.8 Allergy status to other drugs, medicaments and biological substances; Z68.26 Body mass index [BMI] 26.0-26.9, adult
CPT/HCPCS: 36415; 71045; 73030; 73221; 80048; 80053; 80061; 80305; 81003; 83605; 83615; 83735; 84100; 84145; 84443; 84484; 84550; 85014; 85018; 85025; 86850; 86900; 86920; 93005; 93970; 94640; 96365; 96367; 96375; 97162; 97166; 99291; C1893; J1200; J2270; J2405; J2543; J3370; J7030; J7040; J7626; P9016; P9034